=== PATIENT | female | born 1970 | race Caucasian/White ===

== ENCOUNTER → 2020-05-05 08:28 | Outpatient (BNVA) | payer BC, SELFPAY | PROVIDERS: Family Provider Family Medicine; PCP Family Medicine; Referring Provider Family Medicine; Visit Provider Anesthesiology Pain Medicine | DX: M47.816 Spondylosis without myelopathy or radiculopathy, lumbar region (principal); M43.06 Spondylolysis, lumbar region; M54.2 Cervicalgia; M62.830 Muscle spasm of back; Z79.891 Long term (current) use of opiate analgesic | CPT/HCPCS: 99204; 99205 ==

== ENCOUNTER → 2020-05-20 14:27 | Outpatient (BNVA) | payer BC, SELFPAY | PROVIDERS: Family Provider Family Medicine; PCP Family Medicine; Visit Provider Anesthesiology Pain Medicine | DX: M47.816 Spondylosis without myelopathy or radiculopathy, lumbar region (principal); M43.06 Spondylolysis, lumbar region; M54.9 Dorsalgia, unspecified; Z79.891 Long term (current) use of opiate analgesic | CPT/HCPCS: 64493; 64494; 64495; J2001; J3490 ==

== ENCOUNTER → 2020-06-02 14:51 | Outpatient (BNVA) | payer BC, SELFPAY | PROVIDERS: Family Provider Family Medicine; PCP Family Medicine; Visit Provider Anesthesiology Pain Medicine | DX: M47.816 Spondylosis without myelopathy or radiculopathy, lumbar region (principal); M43.06 Spondylolysis, lumbar region; M54.9 Dorsalgia, unspecified; M54.2 Cervicalgia; M62.830 Muscle spasm of back | CPT/HCPCS: 99213 ==

== ENCOUNTER → 2020-07-01 12:29 | Outpatient (BNVA) | payer BC, SELFPAY | PROVIDERS: Family Provider Family Medicine; PCP Family Medicine; Visit Provider Anesthesiology Pain Medicine | DX: M47.816 Spondylosis without myelopathy or radiculopathy, lumbar region (principal); M43.06 Spondylolysis, lumbar region; M54.2 Cervicalgia; M54.9 Dorsalgia, unspecified; M62.830 Muscle spasm of back; Z79.891 Long term (current) use of opiate analgesic | CPT/HCPCS: 64635; 64636; 99212; J1030 ==

== ENCOUNTER → 2020-08-05 12:27 | Outpatient (BNVA) | payer BC, SELFPAY | PROVIDERS: Family Provider Family Medicine; PCP Family Medicine; Visit Provider Anesthesiology Pain Medicine | DX: M47.816 Spondylosis without myelopathy or radiculopathy, lumbar region (principal); M43.06 Spondylolysis, lumbar region; M62.830 Muscle spasm of back; M54.9 Dorsalgia, unspecified; M54.2 Cervicalgia | CPT/HCPCS: 64635; 64636; 99212; 99213; J1030 ==

== ENCOUNTER → 2020-08-25 14:41 | Outpatient (BNVA) | payer BC, SELFPAY | PROVIDERS: Family Provider Family Medicine; PCP Family Medicine; Visit Provider Anesthesiology Pain Medicine | DX: M47.816 Spondylosis without myelopathy or radiculopathy, lumbar region (principal); M43.06 Spondylolysis, lumbar region; M54.9 Dorsalgia, unspecified; M54.2 Cervicalgia; M62.830 Muscle spasm of back; Z79.891 Long term (current) use of opiate analgesic | CPT/HCPCS: 99213 ==

== ENCOUNTER → 2020-09-14 09:49 | Outpatient (BNVA) | payer BC, SELFPAY | PROVIDERS: Family Provider Family Medicine; PCP Family Medicine; Referring Provider Family Medicine; Visit Provider Nurse Practitioner Family | DX: N39.0 Urinary tract infection, site not specified (principal) | CPT/HCPCS: 80053; 81003 ==

== ENCOUNTER → 2020-10-06 08:39 | Outpatient (BNVA) | payer BC, SELFPAY | PROVIDERS: Family Provider Family Medicine; PCP Family Medicine; Visit Provider Anesthesiology Pain Medicine | DX: M47.816 Spondylosis without myelopathy or radiculopathy, lumbar region (principal); M43.06 Spondylolysis, lumbar region; M54.9 Dorsalgia, unspecified; M54.2 Cervicalgia; M62.830 Muscle spasm of back; Z79.891 Long term (current) use of opiate analgesic | CPT/HCPCS: 99214 ==

== ENCOUNTER → 2020-10-12 13:51 | Outpatient (BNVA) | payer BC, SELFPAY | PROVIDERS: Family Provider Family Medicine; PCP Family Medicine; Visit Provider Anesthesiology Pain Medicine | DX: M54.16 Radiculopathy, lumbar region (principal); M54.9 Dorsalgia, unspecified; Z79.891 Long term (current) use of opiate analgesic | CPT/HCPCS: 64483; 64484; J1100; J3490 ==

== ENCOUNTER → 2020-11-02 10:37 | Outpatient (BNVA) | payer BC, SELFPAY | PROVIDERS: Family Provider Family Medicine; PCP Family Medicine; Visit Provider Anesthesiology Pain Medicine | DX: M47.816 Spondylosis without myelopathy or radiculopathy, lumbar region (principal); M43.06 Spondylolysis, lumbar region; M54.9 Dorsalgia, unspecified; M62.830 Muscle spasm of back; M54.2 Cervicalgia; Z79.891 Long term (current) use of opiate analgesic; N39.0 Urinary tract infection, site not specified; B37.3 Candidiasis of vulva and vagina | CPT/HCPCS: 81003; 99213 ==

== ENCOUNTER → 2020-11-28 08:58 | Outpatient (BNVA) | payer BC, SELFPAY | PROVIDERS: Family Provider Family Medicine; PCP Family Medicine; Visit Provider Anesthesiology Pain Medicine | DX: M47.816 Spondylosis without myelopathy or radiculopathy, lumbar region (principal); M62.830 Muscle spasm of back; M43.06 Spondylolysis, lumbar region; M54.9 Dorsalgia, unspecified; M51.36 Other intervertebral disc degeneration, lumbar region; M25.559 Pain in unspecified hip; M19.90 Unspecified osteoarthritis, unspecified site; M48.02 Spinal stenosis, cervical region; M54.12 Radiculopathy, cervical region | CPT/HCPCS: 99214; 99215 ==

== ENCOUNTER → 2020-12-14 13:18 | Outpatient (BNVA) | payer BC, SELFPAY | PROVIDERS: Family Provider Family Medicine; PCP Family Medicine; Visit Provider Anesthesiology Pain Medicine | DX: G89.29 Other chronic pain (principal); M19.90 Unspecified osteoarthritis, unspecified site; M25.552 Pain in left hip; M43.06 Spondylolysis, lumbar region | CPT/HCPCS: 20610; 77002; J1030; J3490 ==

== ENCOUNTER 2021-01-19 08:48 | Emergency (ER) | payer BC, SELFPAY ==
[2021-01-19 08:53] VITALS: BP 177/94; PULSE 86; RESP 16; TEMP 36.1; O2SAT 96; BMI 39.1
--- NOTE | 2021-01-19 09:00 | XR_ITS ---
WS: [id number] Exam: XR ribs LT mn 3V w CXR1V [id number] Date/Time of Exam: 01/19/2021 9:43 AM Reason For Exam: fall No acute left rib fracture or pneumothorax. The lungs are bilaterally clear. Normal cardiomediastinal structures. No pleural effusions. XR/XR ribs LT mn 3V w CXR1V [id number] IMPRESSION: 1. Negative left rib study. No acute cardiopulmonary finding.
--- NOTE | 2021-01-19 09:00 | XR_ITS ---
WS: [id number] Exam: XR hip LT 2-3V wo/w pel* [id number] Date/Time of Exam: 01/19/2021 9:43 AM Reason For Exam: fall No acute fracture or dislocation. Moderate degenerative change of the joint compartment. Normal soft tissues. XR/XR hip LT 2-3V wo/w pel* [id number] IMPRESSION: 1. Moderate DJD. No fracture noted.
--- NOTE | 2021-01-19 09:00 | XR_ITS ---
WS: [id number] Exam: XR shoulder LT min 2V* [id number] Date/Time of Exam: 01/19/2021 9:43 AM Reason For Exam: fall The projections of the shoulder reveal no fractures, anomalies, soft tissue swelling, or calcificatio ns. There is normal bony alignment. No irregularity of the bony architecture is noted. XR/XR shoulder LT min 2V* [id number] IMPRESSION: Negative left shoulder.
--- NOTE | 2021-01-19 09:09 | PC.NURSE ---
portable xray at bedside
[2021-01-19] MEDS: orphenadrine 30 mg/mL Inj 2 mL 60 MG IM (09:13)
[2021-01-19] MEDS: ketorolac 30 mg/mL INJ IM (09:13)
--- NOTE | 2021-01-19 09:56 | ED_ITS ---
HPI - Fall General: Chief Complaint: Fall Stated Complaint: fall, buttock pain , head pain, L shoulder pain Time Seen by Provider: 01/19/21 08:54 History of Present Illness: HPI Narrative: Patient is a 50-year-old female that presents with shoulder, chest and hip pain after a fall. Patient states yesterday afternoon around 330 she was stepping out of the shower when she slipped and fell landing against the toilet. She does states she hit the side of her head but denies loss of consciousness. She reports left shoulder pain, left lateral chest pain and left hip pain. She has been ambulatory since then. She has hydrocodone at home for other chronic pain and states she took some of this to help with her pain. She denies other symptoms. MD complaint: fall Onset (ago): day(s) (Yesterday) Fall from: standing Loss of consciousness: None Context: tripped/slipped Location of injury - extremities: Left: shoulder Associated symptoms-after fall: Denies chest pain, headache(s), hematuria or neck pain Review of Systems General: Reports: 10 or more systems reviewed and unremarkable except in HPI and below Const: Denies: fever(s) Eyes: Denies: blurry vision ENMT: Denies: nasal congestion Card: Reports: other (Left-sided chest wall pain); Denies: chest pain, palpitations, syncope or dyspnea on exertion Resp: Denies: dyspnea or productive cough GI: Reports: nausea; Denies: vomiting, diarrhea, constipation, change in stool character or melena : Denies: dysuria or hematuria Musc: Reports: extremity pain (Left shoulder and left hip); Denies: neck pain or back pain Skin/Breast: Denies: rash or new lesions Neuro: Denies: headache(s) or dizziness Psych: Denies: anxiety Varun/Lymph: Denies: easy bleeding, petechiae or purpura PFSH ED PFSH: Medical History Hypertension Recurrent UTI Slipped cervical disc Yeast vaginitis Surgical History History of section History of knee surgery Family History Other Cancer Diabetes Social History Smoking and tobacco status: never smoked Alcohol intake: never Household members: children Marital status: Current occupational status: employed Current occupation: [employer] History of recent travel: No Physical Exam Const: COMMON NORMALS: no acute distress, patient oriented x3, alert and well nourished HENMT: COMMON NORMALS: normocephalic, atraumatic, EAC's normal, TM's normal bilaterally and Normal external nose present HEAD & SCALP: normocephalic and atraumatic FACE & SINUS: normal facial exam and face symmetric NOSE: Normal external nose present EXTERNAL AUDITORY CANAL: EAC's normal TYMPANIC MEMBRANE: TM's normal bilaterally MOUTH: Normal oral and palatal mucosa present and moist mucous membranes abnormal Eye: COMMON NORMALS: Equal, round and reactive pupils present PUPIL: Yes Equal, round and reactive pupils present Neck/C-Spine: GENERAL: Yes normal visual inspection Chest: COMMONS NORMALS: normal inspection of the chest CHEST: No crepitus and Yes tenderness (Left lateral chest wall) Resp: COMMON NORMALS: normal respiratory effort, No retractions, No use of accessory muscles and clear to auscultation bilaterally AUSCULTATION: clear to auscultation bilaterally Cardio: COMMON NORMALS: regular rate, regular rhythm, S1 normal heart sound present, S2 normal heart sound present and No murmurs present (Cardio) RATE: regular rate RHYTHM: regular rhythm HEART SOUNDS: S1 normal heart sound present and S2 normal heart sound present GI: COMMON NORMALS: Soft to palpation and No hepatosplenomegaly present INSPECTION: Yes normal to inspection AUSCULTATION: Yes normoactive bowel sounds PALPATION: Yes Soft to palpation and Yes No hepatosplenomegaly present RECTAL EXAM: deferred : COMMON NORMALS: Yes no CVA tenderness BLADDER/KIDNEY EXAM: Yes no CVA tenderness Back/Pelvis: COMMON NORMALS: no CVA tenderness Extremity: LEFT UPPER EXTREMITY: Yes shoulder joint (Left shoulder with mild tenderness to palpation. Full passive and active r) Left shoulder joint: Yes ROM LEFT LOWER EXTREMITY: Yes hip joint (Mild tenderness to palpation over the greater trochanter of the left hip.) Neuro: COMMON NORMALS: patient oriented x3 and moves all extremities SENSORIUM/ORIENTATION: Yes alert SPEECH: speech normal Psych: COMMON NORMALS: mental status grossly normal Skin: COMMON NORMALS: no rashes or lesions noted GENERAL SKIN EXAM: no rashes or lesions noted Course Vital Signs: Vital signs: Vital Signs Temperature 97.0 F L 01/19/21 08:53 Pulse Rate 79 01/19/21 11:00 Respiratory Rate 16 01/19/21 11:00 Blood Pressure 177/94 01/19/21 08:53 Pulse Oximetry 99 01/19/21 11:00 MDM - Fall MDM Narrative: Medical decision making narrative: Patient remained stable in ED. Shortly after arriving back to the room from her initial x-rays she also complained of right foot pain after stepping on a rock a week ago. She has some mild tenderness across her midfoot but no swelling or ecchymosis noted. Her x- rays are unremarkable for acute bony abnormalities. Discussed that she likely just strained some muscles and has some muscle cramping. She is already on muscle relaxants and narcotic pain medicine at home. Advised she take these as directed. Discussed signs symptoms of warrant return to the ED otherwise follow-up with her primary care doctor. She voiced understanding is agreeable to plan of care. Discharge Plan Discharge Patient Disposition: Home Clinical Impression: Foot pain, right, Acute pain of left shoulder, Rib pain on left side Hip pain Qualifiers: Laterality: left Qualified Code(s): M25.552 - Pain in left hip Condition: Good Prescriptions: No Action medroxyprogesterone [Depo-Provera] 150 mg/mL suspension IM .1 Q 3 months RF: 0 trazodone 50 mg tablet 50 mg PO DAILY RF: 0 celecoxib [Celebrex] 200 mg capsule 200 mg PO DAILY RF: 0 lisinopril 20 mg tablet 20 mg PO DAILY RF: 0 gabapentin 300 mg capsule 300 mg PO BID 30 Days Qty: 60 RF: 1 fluconazole 150 mg tablet 150 mg PO Q3D Qty: 2 RF: 1 ciprofloxacin HCl 500 mg tablet 500 mg PO BID Qty: 60 RF: 3 tizanidine 4 mg tablet 4 mg PO BID PRN (Reason: muscle spasticity) Qty: 60 RF: 0 hydrocodone-acetaminophen 5-325 mg tablet 1 tab PO BID MDD 2 PRN (Reason: pain ) 30 Days Qty: 60 RF: 0 Discharge Orders: Discharge ED (Routine); Ordered 01/19/21 Ordered By: Cesar He Referrals: Roxi,Anthony F, DO [Primary Care Provider] - Discharge Diet: Usual diet Discharge Activity: Resume usual activity Activity Restrictions/Additional Instructions: Continue to use your muscle relaxants as needed at home. May apply heat or ice to the affected areas as needed. Drink plenty of water as this will help with your soreness. Follow-up with your primary care doctor in 1 to 2 weeks. Return to the ED if symptoms return or worsen. 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
--- NOTE | 2021-01-19 10:08 | XR_ITS ---
WS: [id number] Exam: XR foot RT min 3V* [id number] Date/Time of Exam: 01/19/2021 10:10 AM Reason For Exam: foot pain Comparison 06/03/2019. No acute fracture or dislocation. Degenerative changes at the first MP joint in the midfoot joints. N o soft tissue foreign bodies. Calcaneal spurs. XR/XR foot RT min 3V* [id number] IMPRESSION: 1. No fracture or dislocation. 2. Degenerative changes.
[2021-01-19 11:00] VITALS: PULSE 79; RESP 16; O2SAT 99
== END 2021-01-19 11:00 | disposition home or self-care (01) ==
PROVIDERS: Emergency Provider Emergency Medicine; PCP Family Medicine
DX: M25.512 Pain in left shoulder (principal); R07.81 Pleurodynia; M79.671 Pain in right foot; I10 Essential (primary) hypertension
CPT/HCPCS: 71101; 73030; 73502; 73630; 96372; 99283; J1885; J2360

== ENCOUNTER → 2021-01-23 13:50 | Outpatient (BNVA) | payer BC, SELFPAY | PROVIDERS: PCP Family Medicine; Visit Provider Anesthesiology Pain Medicine | DX: M54.12 Radiculopathy, cervical region (principal); M47.816 Spondylosis without myelopathy or radiculopathy, lumbar region; M62.830 Muscle spasm of back; M43.06 Spondylolysis, lumbar region; M54.9 Dorsalgia, unspecified; M51.36 Other intervertebral disc degeneration, lumbar region; M25.552 Pain in left hip; M19.90 Unspecified osteoarthritis, unspecified site; M48.02 Spinal stenosis, cervical region; Z79.891 Long term (current) use of opiate analgesic | CPT/HCPCS: 99215 ==

== ENCOUNTER 2021-02-03 13:05 | Outpatient (CLI) | payer BC, SELFPAY ==
--- NOTE | 2021-02-03 13:14 | MR_ITS ---
WS: [id number] MRI CERVICAL SPINE NONCONTRAST HISTORY: M54.12 - Radiculopathy, cervical region COMPARISON: 01/10/2007 Technique: Multiplanar, multisequence noncontrast imaging of the cervical spine. Mild straightening of the normal cervical lordosis. No fracture or marrow edema. Signal within the cord is normal. Disc spaces are narrowed and desiccated. Osteophytes extend posteri or most significant from the C5 vertebral body towards the cord. Craniocervical junction, C1 and C2 relationship, odontoid process and soft tissues are normal. C2-C3: Normal. C3-C4: Mild annular disc bulging and osteophytic ridging. Disc osteophyte complex in the LEFT foramen causing mild narrowing. C4-C5: Normal. C5-C6: Diffuse annular disc bulging with moderate sized foraminal osteophytes. Mild encroachment upon the ventral thecal sac with moderate bilateral foraminal stenosis, LEFT greater than RIGHT. C6-C7: Mild annular disc bulging with a central disc protrusion. Disc osteophyte complex in the miguel en causing moderate bilateral foraminal narrowing and mild central stenosis. C7-T1: Shallow central disc protrusion with no significant foraminal stenosis. T2-3: Very tiny central disc protrusion. Paraspinal soft tissue are normal. MR/MR cervical spin wo con* [id number] IMPRESSION: 1. Advanced degenerative disc disease and osteophytosis at C5-6 and to a lesse r extent C6-7. As compared to the prior study from 2006 there has been a progre ssion of degenerative disc disease and osteophytosis. 2. Mild central stenosis with moderate bilateral foraminal stenosis at C5-6 d ue to disc osteophyte disease. 3. Moderate bilateral foraminal stenosis and mild central stenosis at C6-7 due to disc osteophyte disease. 4. Mild LEFT foraminal stenosis at C3-4.
--- NOTE | 2021-02-03 13:14 | XR_ITS ---
WS: [id number] LATERAL CERVICAL SPINE: 3 view. Lateral radiographs are performed in upright neutral, flexion and extension to the patient's toleranc e. HISTORY: M54.12 - Radiculopathy, cervical region COMPARISON: 01/14/2007 Straightening of the normal cervical lordosis. Moderate degenerative disc disease at C5-6. Endplate o steophytes extend posterior and anterior by 1 to 2 mm. Mild disc space narrowing at C6-7. During exte nsion C3 retrolisthesis by 2.5 mm. XR/XR cervical spine fl/ex [id number] IMPRESSION: 1. Moderate degenerative disc disease at C5-6 and mild at C6-7. 2. Mild extension instability of C3.
== END 2021-02-03 13:06 | disposition home or self-care (01) ==
LOC: RADWPI 13:09
PROVIDERS: PCP Family Medicine; Visit Provider Anesthesiology Pain Medicine
DX: M54.12 Radiculopathy, cervical region (principal); M50.322 Other cervical disc degeneration at C5-C6 level; M53.2X2 Spinal instabilities, cervical region; M48.02 Spinal stenosis, cervical region; M25.78 Osteophyte, vertebrae
CPT/HCPCS: 72040; 72141

== ENCOUNTER → 2021-02-06 08:20 | Outpatient (BNVA) | payer BC, SELFPAY | PROVIDERS: PCP Family Medicine; Visit Provider Anesthesiology Pain Medicine | DX: N39.0 Urinary tract infection, site not specified (principal); M51.36 Other intervertebral disc degeneration, lumbar region; M47.816 Spondylosis without myelopathy or radiculopathy, lumbar region; M54.9 Dorsalgia, unspecified; M48.02 Spinal stenosis, cervical region; M54.12 Radiculopathy, cervical region; M19.90 Unspecified osteoarthritis, unspecified site; M25.552 Pain in left hip; Z79.891 Long term (current) use of opiate analgesic | CPT/HCPCS: 81003; 87086; 99214 ==

== ENCOUNTER → 2021-02-17 12:54 | Outpatient (BNVA) | payer BC, SELFPAY | PROVIDERS: PCP Family Medicine; Visit Provider Anesthesiology Pain Medicine | DX: M54.12 Radiculopathy, cervical region (principal); Z79.891 Long term (current) use of opiate analgesic | CPT/HCPCS: 62321; J1100 ==

== ENCOUNTER 2021-02-23 13:38 | Outpatient (CLI) | payer BC, SELFPAY ==
--- NOTE | 2021-02-23 13:44 | XR_ITS ---
WS: [id number] FOOT RIGHT TECHNIQUE: 3 views of the right foot CLINICAL INFORMATION: FOOT PAIN, RIGHT COMPARISON: None. FINDINGS: Osteopenia. Normal metatarsals. No acute fractures. Plantar and Achilles calcaneal spurring. Achilles enthesophyte. No acute fractures. XR/XR foot RT min 3V* [id number] IMPRESSION: No acute fractures
== END 2021-02-23 13:39 | disposition home or self-care (01) ==
PROVIDERS: PCP Family Medicine; Visit Provider Family Medicine
DX: M79.671 Pain in right foot (principal)
CPT/HCPCS: 73630

== ENCOUNTER → 2021-03-02 14:39 | Outpatient (BNVA) | payer BC, SELFPAY | PROVIDERS: PCP Family Medicine; Visit Provider Anesthesiology Pain Medicine | DX: M48.02 Spinal stenosis, cervical region (principal); M54.12 Radiculopathy, cervical region; M54.9 Dorsalgia, unspecified; M47.816 Spondylosis without myelopathy or radiculopathy, lumbar region; M51.36 Other intervertebral disc degeneration, lumbar region; M16.12 Unilateral primary osteoarthritis, left hip; M19.90 Unspecified osteoarthritis, unspecified site; Z79.891 Long term (current) use of opiate analgesic | CPT/HCPCS: 99214 ==

== ENCOUNTER → 2021-03-27 10:00 | Outpatient (BNVA) | payer BC, SELFPAY | PROVIDERS: PCP Family Medicine; Visit Provider Anesthesiology Pain Medicine | DX: M47.816 Spondylosis without myelopathy or radiculopathy, lumbar region (principal); M51.36 Other intervertebral disc degeneration, lumbar region; M25.541 Pain in joints of right hand; M25.542 Pain in joints of left hand; M62.830 Muscle spasm of back; M54.9 Dorsalgia, unspecified; M25.552 Pain in left hip; M48.02 Spinal stenosis, cervical region; M54.12 Radiculopathy, cervical region; M19.90 Unspecified osteoarthritis, unspecified site; Z79.891 Long term (current) use of opiate analgesic | CPT/HCPCS: 99214 ==

== ENCOUNTER → 2021-04-27 14:43 | Outpatient (BNVA) | payer OTHER, SELFPAY | PROVIDERS: PCP Family Medicine; Visit Provider Anesthesiology Pain Medicine | DX: M47.816 Spondylosis without myelopathy or radiculopathy, lumbar region (principal); M43.06 Spondylolysis, lumbar region; M51.36 Other intervertebral disc degeneration, lumbar region; M54.9 Dorsalgia, unspecified; M62.830 Muscle spasm of back; M48.02 Spinal stenosis, cervical region; M54.12 Radiculopathy, cervical region; M25.541 Pain in joints of right hand; M25.542 Pain in joints of left hand; M16.12 Unilateral primary osteoarthritis, left hip | CPT/HCPCS: 99214 ==

== ENCOUNTER → 2021-05-02 15:28 | Outpatient (BNVA) | payer BC, SELFPAY | PROVIDERS: PCP Family Medicine; Visit Provider Podiatrist Foot & Ankle Surgery | DX: M25.571 Pain in right ankle and joints of right foot (principal) | CPT/HCPCS: 73630 ==

== ENCOUNTER 2021-05-08 15:20 | Outpatient (CLI) | payer BC, SELFPAY ==
--- NOTE | 2021-05-08 15:45 | US_ITS ---
WS: [id number] INDICATION: Looney's neuroma TECHNIQUE: Ultrasound soft tissue area of concern FINDINGS: Ultrasound soft tissue right toes area of concern. Solid hypoechoic lesion with vascularity between the third and fourth toes suspicious for Looney's neuroma. This measures approximately 5.2 x 4.4 x 3.9 mm. US/US soft tissue/extremity [id number] IMPRESSION: Solid hypoechoic lesion suspicious for Looney's neuroma between the third and fourth toes described above.
== END 2021-05-08 15:21 | disposition home or self-care (01) ==
LOC: RAD 15:23
PROVIDERS: PCP Family Medicine; Visit Provider Podiatrist Foot & Ankle Surgery
DX: G57.61 Lesion of plantar nerve, right lower limb (principal)
CPT/HCPCS: 76882

== ENCOUNTER → 2021-05-17 10:52 | Outpatient (BNVA) | payer BC, SELFPAY | PROVIDERS: PCP Family Medicine; Visit Provider Internal Medicine | DX: M47.816 Spondylosis without myelopathy or radiculopathy, lumbar region (principal); M54.9 Dorsalgia, unspecified; Z79.891 Long term (current) use of opiate analgesic; M19.90 Unspecified osteoarthritis, unspecified site; M25.541 Pain in joints of right hand; M25.542 Pain in joints of left hand; Z11.59 Encounter for screening for other viral diseases; M48.00 Spinal stenosis, site unspecified | CPT/HCPCS: 36415; 64635; 64636; 99203; 99204; J1030 ==

== ENCOUNTER 2021-05-17 14:04 | Outpatient (CLI) | payer BC, SELFPAY ==
--- NOTE | 2021-05-17 14:10 | XR_ITS ---
WS: [id number] TECHNIQUE: 2 views of the right hand CLINICAL INFORMATION: M25.541 - Pain in joints of right hand COMPARISON: None. FINDINGS: Normal metacarpals. Normal MCP joint. Metacarpal heads are normal in appearance. Normal PIP and DIP j oints. No evidence of acute fracture or dislocation. No erosive changes. Radiocarpal joint: Mild degenerative narrowing Carpal bones: Normal. XR/XR hand RT 2V [id number] IMPRESSION: 1. Mild degenerative narrowing radiocarpal joint. 2. No erosive changes. 3. Otherwise normal right hand.
--- NOTE | 2021-05-17 14:10 | XR_ITS ---
WS: [id number] TECHNIQUE: 2 views of the left hand CLINICAL INFORMATION: M25.541 - Pain in joints of right hand COMPARISON: None. FINDINGS: Normal metacarpals. Normal MCP joint. Metacarpal heads are normal in appearance. Normal PIP and DIP j oints. No evidence of acute fracture or dislocation. No erosive changes. Radiocarpal joint: Normal. Carpal bones: Normal. XR/XR hand LT 2V [id number] IMPRESSION: No erosive changes. Normal left hand.
== END 2021-05-17 14:05 | disposition home or self-care (01) ==
PROVIDERS: PCP Family Medicine; Visit Provider Internal Medicine
DX: M25.541 Pain in joints of right hand (principal); M25.542 Pain in joints of left hand; Z11.59 Encounter for screening for other viral diseases; Z11.1 Encounter for screening for respiratory tuberculosis
CPT/HCPCS: 36415; 73120; 80053; 82306; 82550; 82728; 83540; 83735; 84100; 84443; 85025; 85651; 86140; 86160; 86162; 86235; 86255; 86376; 86431; 86704; 86803; 87340

== ENCOUNTER → 2021-05-31 12:40 | Outpatient (BNVA) | payer BC, SELFPAY | PROVIDERS: PCP Family Medicine; Visit Provider Anesthesiology Pain Medicine | DX: M47.816 Spondylosis without myelopathy or radiculopathy, lumbar region (principal); M43.06 Spondylolysis, lumbar region; M62.830 Muscle spasm of back; M54.9 Dorsalgia, unspecified; Z79.891 Long term (current) use of opiate analgesic | CPT/HCPCS: 64635; 64636; J1100; J3490 ==

== ENCOUNTER → 2021-06-08 09:45 | Outpatient (BNVA) | payer OTHER, SELFPAY | PROVIDERS: PCP Family Medicine; Visit Provider Nurse Practitioner Family | DX: N39.0 Urinary tract infection, site not specified (principal); N89.8 Other specified noninflammatory disorders of vagina | CPT/HCPCS: 81003 ==

== ENCOUNTER → 2021-06-15 14:42 | Outpatient (BNVA) | payer BC, SELFPAY | PROVIDERS: PCP Family Medicine; Visit Provider Anesthesiology Pain Medicine | DX: G89.29 Other chronic pain (principal); M47.816 Spondylosis without myelopathy or radiculopathy, lumbar region; M43.06 Spondylolysis, lumbar region; M51.36 Other intervertebral disc degeneration, lumbar region; M48.02 Spinal stenosis, cervical region; M54.12 Radiculopathy, cervical region; M25.541 Pain in joints of right hand; M25.542 Pain in joints of left hand; M16.12 Unilateral primary osteoarthritis, left hip; M62.830 Muscle spasm of back; Z79.891 Long term (current) use of opiate analgesic | CPT/HCPCS: 99214 ==

== ENCOUNTER 2021-07-07 14:06 | Outpatient (CLI) | payer BC, SELFPAY ==
[2021-07-07 14:48] LABS: Basophils % 0.4 %; Eosinophils # 0.3 10^3/uL (0.0-0.8); Eosinophils % 3.6 %; Hematocrit 39.3 % (37.0-47.0); Hemoglobin 12.7 g/dL (11.5-15.3); Lymphocytes # 2.6 10^3/uL (0.8-4.8); Mean Corpuscular HGB Conc 32.3 g/dL (30.0-36.0); Mean Corpuscular Volume 92.9 fl (81-99); Mean Platelet Volume 11.9 fL (7.4-10.4); Monocytes # 0.5 10^3/uL (0.2-0.9); Monocytes % 6.7 %; Neutrophils # 3.81 10^3/uL (1.8-7.7); Neutrophils % 53.2 %; Nucleated Red Blood Cells % 0 %; Platelet Count 288 10^3/cmm (130-400); Red Blood Count 4.23 10^6/uL (4.1-5.3); Red Cell Distribution Width 13.1 % (12.1-15.1); White Blood Count 7.2 10^3/uL (4.0-10.0)
[2021-07-07 15:22] LABS: Alanine Aminotransferase 17 U/L (0-33); Albumin Level 3.9 g/dL (3.5-5.2); Alkaline Phosphatase 86 IU/L (35-105); Anion Gap 11.6 (5-19); Aspartate Amino Transferase 15 U/L (0-32); Blood Urea Nitrogen 15 mg/dL (6-20); C Reactive Protein 4.5 mg/L (0.0-4.9); Calcium 8.2 mg/dL (8.5-10.5); Carbon Dioxide 26 mmol/L (22-29); Chloride 108 mmol/L (98-107); Globulin 2.8 g/dL (1.3-4.6); Glomerular Filtration Rate 75.3 mL/min (90-130); Glucose 95 mg/dL (65-115); Osmolality Calculated 295 mOsm/kg (285-295); Potassium 3.6 mmol/L (3.5-5.1); Sodium 142 mmol/L (136-145); Total Bilirubin 0.4 mg/dL (0.15-1.2); Total Protein 6.7 g/dL (6.6-8.7)
[2021-07-07 16:28] LABS: Erythrocyte Sedimentation Rate 21 mm/hr (0-15)
== END 2021-07-07 14:07 | disposition home or self-care (01) ==
LOC: LAB 14:10
PROVIDERS: PCP Family Medicine; Visit Provider Internal Medicine
DX: M19.90 Unspecified osteoarthritis, unspecified site (principal); Z79.899 Other long term (current) drug therapy
CPT/HCPCS: 80053; 85025; 85651; 86140

== ENCOUNTER → 2021-07-13 14:55 | Outpatient (BNVA) | payer BC, SELFPAY | PROVIDERS: PCP Family Medicine; Visit Provider Internal Medicine | DX: M25.541 Pain in joints of right hand (principal); M25.542 Pain in joints of left hand; M19.90 Unspecified osteoarthritis, unspecified site; M51.36 Other intervertebral disc degeneration, lumbar region; Z79.899 Other long term (current) drug therapy; R74.8 Abnormal levels of other serum enzymes | CPT/HCPCS: 99213; 99214 ==

== ENCOUNTER → 2021-07-24 09:04 | Outpatient (BNVA) | payer BC, SELFPAY | PROVIDERS: PCP Family Medicine; Visit Provider Anesthesiology Pain Medicine | DX: M47.816 Spondylosis without myelopathy or radiculopathy, lumbar region (principal); M43.06 Spondylolysis, lumbar region; M51.36 Other intervertebral disc degeneration, lumbar region; M25.552 Pain in left hip; M19.90 Unspecified osteoarthritis, unspecified site; M48.02 Spinal stenosis, cervical region; M54.12 Radiculopathy, cervical region; M25.541 Pain in joints of right hand; M25.542 Pain in joints of left hand; M62.830 Muscle spasm of back; Z79.891 Long term (current) use of opiate analgesic | CPT/HCPCS: 99214 ==

== ENCOUNTER → 2021-08-17 14:41 | Outpatient (BNVA) | payer BC, SELFPAY | PROVIDERS: PCP Family Medicine; Visit Provider Anesthesiology Pain Medicine | DX: G89.29 Other chronic pain (principal); M47.816 Spondylosis without myelopathy or radiculopathy, lumbar region; M43.06 Spondylolysis, lumbar region; M51.36 Other intervertebral disc degeneration, lumbar region; M16.12 Unilateral primary osteoarthritis, left hip; M48.02 Spinal stenosis, cervical region; M54.12 Radiculopathy, cervical region; M62.830 Muscle spasm of back; Z79.891 Long term (current) use of opiate analgesic | CPT/HCPCS: 99214 ==

== ENCOUNTER → 2021-09-14 14:45 | Outpatient (BNVA) | payer BC, SELFPAY | PROVIDERS: PCP Family Medicine; Visit Provider Anesthesiology Pain Medicine | DX: G89.29 Other chronic pain (principal); M47.816 Spondylosis without myelopathy or radiculopathy, lumbar region; M43.06 Spondylolysis, lumbar region; M51.36 Other intervertebral disc degeneration, lumbar region; M16.2 Bilateral osteoarthritis resulting from hip dysplasia; M48.02 Spinal stenosis, cervical region; M54.12 Radiculopathy, cervical region; M62.830 Muscle spasm of back; Z79.891 Long term (current) use of opiate analgesic | CPT/HCPCS: 99214 ==

== ENCOUNTER 2021-10-04 09:23 | Emergency (ER) | payer BC, SELFPAY ==
--- NOTE | 2021-10-04 09:25 | XR_ITS ---
WS: [id number] Portable AP upright chest, 10/04/2021 Clinical Data: dyspnea/cough Comparison: PA chest, 01/19/2021. Findings: There are bilateral patchy pulmonary opacities which could represent minimal pneumonia. The heart is slightly enlarged. The upper lobes are clear. No nodules, masses or effusions are seen. Mon itor leads are on the chest wall. XR/XR chest 1V portable [id number] Impression: 1. Bilateral lower lobe pulmonary opacities which may represent pneumonia. 2. Cardiomegaly.
[2021-10-04 09:30] VITALS: BP 64/49; PULSE 106; RESP 18; TEMP 37.1; O2SAT 93; BMI 39.1
--- NOTE | 2021-10-04 09:30 | W.ED.COVID ---
HPI - COVID General: Chief Complaint: COVID symptoms Stated Complaint: COVID+:N/V/D,BLOOD/STOOL,FATIGUE,FALL LAST PM Time Seen by Provider: 10/04/21 09:25 History of Present Illness: HPI Narrative: 51-year-old female presents emergency room known Covid positive. She has had nausea vomiting and diarrhea. She is also had some blood in the stool in her stool. She is very fatigued. Last night she had a fall. MD complaint: known COVID positive Prior testing date: 09/27/21 COVID 19 common symptoms: positive fever(s), chills, cough, dyspnea, fatigue, body aches, nasal congestion, nausea, vomiting and diarrhea COVID 19 other sytmptoms: negative chest pain or requiring oxygen Onset (ago): day(s) Severity: moderate Pertinent comorbid conditions: hypertension and obesity Treatment prior to arrival: none COVID Results: No Data to Display Review of Systems Const: Reports: fever(s), chills, body aches and fatigue ENMT: Reports: nasal congestion Card: Denies: chest pain, edema, dyspnea on exertion or orthopnea Resp: Reports: dyspnea GI: Reports: nausea, vomiting and diarrhea : Denies: flank pain, difficulty voiding, dysuria, urinary frequency or urinary urgency Skin/Breast: Denies: rash or pruritus PFSH ED PFSH: Medical History Hypertension Recurrent UTI Slipped cervical disc Yeast vaginitis Surgical History History of section History of knee surgery Family History Mother Cancer breast Other Diabetes Social History Second hand smoke exposure: No Alcohol intake: never Household members: children Marital status: Current occupational status: employed Current occupation: [employer]- [employer] History of recent travel: No Physical Exam Const: COMMON NORMALS: no acute distress GENERAL APPEARANCE: cooperative and comfortable ORIENTATION/CONSCIOUSNESS: Yes awake, Yes oriented to person, Yes oriented to place and Yes oriented to time HENMT: COMMON NORMALS: normocephalic, atraumatic and hearing grossly normal bilaterally HEAD & SCALP: normocephalic and atraumatic Resp: COMMON NORMALS: normal respiratory effort, No retractions, No use of accessory muscles and clear to auscultation bilaterally AUSCULTATION: clear to auscultation bilaterally Cardio: COMMON NORMALS: regular rate, regular rhythm and No murmurs present (Cardio) RATE: regular rate RHYTHM: regular rhythm GI: COMMON NORMALS: Soft to palpation and No hepatosplenomegaly present AUSCULTATION: Yes normoactive bowel sounds PALPATION: Yes Soft to palpation, No Tenderness to palpation present (GI), No Guarding due to palpation present (GI) and Yes No hepatosplenomegaly present Extremity: COMMON NORMALS: normal to inspection, capillary refill normal, no clubbing, cyanosis or edema, no calf tenderness and no pedal edema Neuro: SENSORIUM/ORIENTATION: Yes oriented to person, Yes oriented to place and Yes oriented to time Skin: COMMON NORMALS: no rashes or lesions noted GENERAL SKIN EXAM: no rashes or lesions noted Course Vital Signs: Vital signs: Vital Signs Temperature 98.8 F 10/04/21 09:30 Pulse Rate 92 10/04/21 13:19 Respiratory Rate 18 10/04/21 13:19 Blood Pressure 121/62 10/04/21 13:19 Pulse Oximetry 98 10/04/21 13:19 MDM - COVID Lab Data: Labs: Lab Results 10/04/21 10/04/21 09:35 09:35 WBC 6.9 10^3/uL 10^3/ uL (4.0-10.0) RBC 4.74 10^6/uL 10^6 /uL (4.1-5.3) Hgb 13.8 g/dL g/dL (11.5-15.3) Hct 42.8 % % (37.0-47.0) MCV 90.3 fl fl (81-99) MCH 29.1 pg pg (28.0-34.0) MCHC 32.2 g/dL g/dL (30.0-36.0) RDW 13.5 % % (12.1-15.1) Plt Count 192 10^3/cmm 10^3 /cmm (130-400) MPV 11.9 fL H fL (7.4-10.4) Neut % (Auto) 77.2 % % Lymph % (Auto) 17.6 % % [place] % (Auto) 4.7 % % Eos % (Auto) 0.1 % % Baso % (Auto) 0.1 % % Neut # (Auto) 5.29 10^3/uL 10^3 /uL (1.8-7.7) Lymph # (Auto) 1.2 10^3/uL 10^3/ uL (0.8-4.8) [place] # (Auto) 0.3 10^3/uL 10^3/ uL (0.2-0.9) Eos # (Auto) 0.0 10^3/uL 10^3/ uL (0.0-0.8) Baso # (Auto) 0.0 10^3/uL 10^3/ uL (0.0-0.1) Nucleated RBC % (a uto) 0 % % Nucleated RBCs # 0.0 /100WBC /100W BC Sodium 134 mmol/L L mmol /L (136-145) Potassium 3.4 mmol/L L mmol /L (3.5-5.1) Chloride 101 mmol/L mmol/L (98-107) Carbon Dioxide 19 mmol/L L mmol/ L (22-29) Anion Gap 17.4 (5-19) BUN 22 mg/dL H mg/dL (6-20) Creatinine 1.2 mg/dL H mg/dL (0.5-0.9) GFR Calculation 47.2 mL/min L mL/ min (90-130) Glucose 117 mg/dL H mg/dL (65-115) Calculated Osmolal ity 282 mOsm/kg L mOs m/kg (285-295) Calcium 8.2 mg/dL L mg/dL (8.5-10.5) Total Bilirubin 0.3 mg/dL mg/dL (0.15-1.2) AST 29 U/L U/L (0-32) ALT 20 U/L U/L (0-33) Alkaline Phosphata se 58 IU/L IU/L (35-105) Total Protein 7.0 g/dL g/dL (6.6-8.7) Albumin 3.4 g/dL L g/dL (3.5-5.2) Globulin 3.6 g/dL g/dL (1.3-4.6) COVID Results: No Data to Display Monoclonal Antibody - ED Inclusion/Exclusion Criteria age >/= 12 years, weight >/= 40kg /88lbs and symptom onset less than 10 days ago obesity (BMI >25 or 85%til for age) not requiring hospitalization, not requiring oxygen (if not chronically on oxygen) and no increase oxygen requirement (if chronically on oxygen) Patient education patient/family/caregiver received/reviewed fact sheet, Emergency Use Authorization/unapproved drug status discussed with patient/family/caregiver, alternatives to this treatment discussed with patient/family/caregiver, risks and benefits of medication reviewed with patient/family/caregiver, patient/family/caregiver given opportunity for questions, which were answered and patient consents to receiving Monoclonal Antibody Treatment Plan for treatment Meets criteria for Monoclonal Antibody infusion Where are the positive COVID test results, if positive?: Scanned into [facility] Ordering Monoclonal Antibody infusion for today Other information Extensive discussion patient has right at the edge of 10 days and some recent studies on her own experience at our institution we found her inside 7 days most beneficial. She is not requiring supplemental oxygen at this point. She does have a little bit of lowering in her oxygen saturation was very clear with her there is a potential for this to worsen her symptoms given this late in the course of symptoms were right at day 10 but there is no clear data on it. She wishes to proceed she was given opportunity to ask specific questions all questions were answered and she still wishes to proceed with the understanding there is a possibility this may make her worse and it may not be of any benefit. Discharge Plan Discharge Patient Disposition: Home Clinical Impression: Pneumonia due to 2019-nCoV Condition: Stable Prescriptions: No Action trazodone 50 mg tablet 50 mg PO DAILY RF: 0 lisinopril 30 mg tablet 30 mg PO DAILY RF: 0 vitamin B complex [B Complex-Vitamin B12] Tablet 1 tab PO DAILY RF: 0 meloxicam 15 mg tablet 15 mg PO DAILY Qty: 30 RF: 2 prednisone 5 mg tablet See Rx Instructions PO DAILY Qty: 60 RF: 0 hydrocodone-acetaminophen 5-325 mg tablet 1 tab PO TID MDD 2 PRN (Reason: pain ) 30 Days Qty: 90 RF: 0 gabapentin 300 mg capsule 300 mg PO BID 30 Days Qty: 60 RF: 1 tizanidine 4 mg tablet 4 mg PO BID PRN (Reason: muscle spasticity) Qty: 60 RF: 0 Discharge Orders: Discharge ED (Routine); Ordered 10/04/21 Ordered By: Casper Pride Referrals: Anthony Diane DO [Primary Care Provider] - Discharge Diet: Usual diet Discharge Activity: Increase activity as tolerated Patient Instructions: Opioid Safety Activity Restrictions/Additional Instructions: Follow up with PCP, monitor oxygen saturations at home. If less than 92% at rest recehck. Coding Level of Care Code ED Records Management Analyst for Chg Fwd Exam Detailed
[2021-10-04 09:51] LABS: Basophils % 0.1 %; Eosinophils % 0.1 %; Hematocrit 42.8 % (37.0-47.0); Hemoglobin 13.8 g/dL (11.5-15.3); Lymphocytes # 1.2 10^3/uL (0.8-4.8); Lymphocytes % 17.6 %; Mean Corpuscular HGB Conc 32.2 g/dL (30.0-36.0); Mean Corpuscular Hemoglobin 29.1 pg (28.0-34.0); Mean Corpuscular Volume 90.3 fl (81-99); Mean Platelet Volume 11.9 fL (7.4-10.4); Monocytes # 0.3 10^3/uL (0.2-0.9); Monocytes % 4.7 %; Neutrophils # 5.29 10^3/uL (1.8-7.7); Neutrophils % 77.2 %; Nucleated Red Blood Cells % 0 %; Platelet Count 192 10^3/cmm (130-400); Red Blood Count 4.74 10^6/uL (4.1-5.3); Red Cell Distribution Width 13.5 % (12.1-15.1); White Blood Count 6.9 10^3/uL (4.0-10.0)
[2021-10-04] MEDS: sodium chloride 0.9% 500 ML 999 ML IV (10:03)
[2021-10-04 10:04] VITALS: O2SAT 95
[2021-10-04 10:14] LABS: Alanine Aminotransferase 20 U/L (0-33); Albumin Level 3.4 g/dL (3.5-5.2); Alkaline Phosphatase 58 IU/L (35-105); Anion Gap 17.4 (5-19); Aspartate Amino Transferase 29 U/L (0-32); Blood Urea Nitrogen 22 mg/dL (6-20); Calcium 8.2 mg/dL (8.5-10.5); Carbon Dioxide 19 mmol/L (22-29); Chloride 101 mmol/L (98-107); Globulin 3.6 g/dL (1.3-4.6); Glomerular Filtration Rate 47.2 mL/min (90-130); Glucose 117 mg/dL (65-115); Osmolality Calculated 282 mOsm/kg (285-295); Potassium 3.4 mmol/L (3.5-5.1); Sodium 134 mmol/L (136-145); Total Bilirubin 0.3 mg/dL (0.15-1.2)
[2021-10-04 13:19] VITALS: BP 121/62; PULSE 92; RESP 18; O2SAT 98
== END 2021-10-04 13:21 | disposition home or self-care (01) ==
PROVIDERS: Emergency Provider Family Medicine; PCP Family Medicine
DX: U07.1 COVID-19 (principal); J12.82 Pneumonia due to coronavirus disease 2019; I10 Essential (primary) hypertension
CPT/HCPCS: 71045; 80053; 85025; 96365; 99284; J7040

== ENCOUNTER 2021-10-15 06:52 | Inpatient (IN) | payer BC, SELFPAY ==
[2021-10-15] VITALS (15 sets, daily range): BP systolic 142–167; BP diastolic 83–96; PULSE 86–119; RESP 21–28; TEMP 36.6–37.7; O2SAT 91–97; BMI 36.0
--- NOTE | 2021-10-15 06:56 | W.ED.CHESTPA ---
HPI - Chest Pain General: Chief Complaint: Chest Pain Stated Complaint: fever, cp, coughoff quarentine covid + a week Time Seen by Provider: 10/15/21 06:56 History of Present Illness: HPI narrative: Ms. Mackey is a 51-year-old lady with history of hypertension and chronic pain who presents to the emergency department due to cough and chest discomfort. She was diagnosed approximately 2 weeks ago with Covid and had fairly typical symptoms at that time. Since time of onset she has had continued symptoms and has not had significant improvement and then worsening. She endorses low-grade fevers, continued muscle aches, pains, cough, chest discomfort, nausea, and some episodes of diarrhea which are improving. Chest discomfort is left anterior chest with some radiation of the breast. There is mild associated shortness of breath however not worse than what she has been experiencing prior to the chest pain. No other typical cardiac features. Quality is sharp and aching. Intensity is moderate. No other specific changes in health, exacerbating, or alleviating factors identified. Review of Systems General: Reports: 10 or more systems reviewed and unremarkable except in HPI and below PFSH ED PFSH: Medical History Hypertension Recurrent UTI Slipped cervical disc Yeast vaginitis Surgical History History of section History of knee surgery Family History Mother Cancer breast Other Diabetes Social History Second hand smoke exposure: No Alcohol intake: never Household members: children Marital status: Current occupational status: employed Current occupation: [employer]- [employer] History of recent travel: No Physical Exam Narrative: EXAM NARRATIVE: GENERAL/CONSTITUTIONAL - mildly ill-appearing. No acute distress. Eyes - no scleral icterus , no conjunctival injection ENMT - Atraumatic external nose and ears. NECK - supple. trachea midline CARDIOVASCULAR -tachycardic rate and regular rhythm. normal peripheral perfusion RESPIRATORY -clear to auscultation bilaterally. Increased respiratory effort and rate increased respiratory effort and rate now requiring supplemental oxygen ABDOMEN/GI - Nontender/Nondistended. MSK - Extremities without obvious deformity. generalized mild muscle tenderness to palpation SKIN - Warm, Dry NEURO - alert and appropriately oriented. Moves all extremities equally. Course ED course: - Patient was seen and evaluated by me at bedside - Patient placed on cardiac monitors, IV access obtained - Initial evaluation notable for ill appearance, increased respiratory effort and rate with new oxygen requirement. - Symptom treatment ordered - Labs notable for leukocytosis. Metabolic panel notable for hypokalemia, replenishment ordered. Delta troponin negative. Procalcitonin negative. - Imaging notable for pneumonia - Upon serial reexamination after treatment the patient was mildly improved - Based on patient history, evaluation, labs, and imaging as interpreted the most likely cause of the patient's condition is Covid pneumonia with acute hypoxic respiratory failure as explained by new oxygen requirement and respiratory distress - The results of ED evaluation were discussed with the patient including plan for admission due to requirement for level of care not available if discharged to prevent significant worsening/deterioration. - Hospitalist service contacted and agreed admit the patient. CTA ordered after discussion and positive for pulmonary embolism, anticoagulation at therapeutic dose ordered. - Patient was admitted without further deterioration or significant events. Vital Signs: Vital signs: Vital Signs Temperature 98.1 F 10/17/21 16:38 Pulse Rate 109 H 10/17/21 16:38 Respiratory Rate 16 10/17/21 16:38 Blood Pressure 127/78 10/17/21 16:38 Pulse Oximetry 99 10/17/21 16:38 MDM - Chest Pain Medical Records: Attestation: I reviewed the patient's medical records. Lab Data: Attestation: I reviewed the patient's lab results. Labs: Lab Results 10/15/21 10/15/21 10/15/21 07:38 07:38 07:38 WBC 15.2 10^3/uL H 10 ^3/uL (4.0-10.0) RBC 3.88 10^6/uL L 10 ^6/uL (4.1-5.3) Hgb 11.7 g/dL g/dL (11.5-15.3) Hct 34.8 % L % (37.0-47.0) MCV 89.7 fl fl (81-99) MCH 30.2 pg pg (28.0-34.0) MCHC 33.6 g/dL g/dL (30.0-36.0) RDW 13.2 % % (12.1-15.1) Plt Count 339 10^3/cmm 10^3 /cmm (130-400) MPV 11.6 fL H fL (7.4-10.4) Neut % (Auto) 75.8 % % Lymph % (Auto) 12.1 % % Glynn % (Auto) 9.8 % % Eos % (Auto) 1.4 % % Baso % (Auto) 0.3 % % Neut # (Auto) 11.51 10^3/uL H 1 0^3/uL (1.8-7.7) Lymph # (Auto) 1.8 10^3/uL 10^3/ uL (0.8-4.8) Glynn # (Auto) 1.5 10^3/uL H 10^ 3/uL (0.2-0.9) Eos # (Auto) 0.2 10^3/uL 10^3/ uL (0.0-0.8) Baso # (Auto) 0.0 10^3/uL 10^3/ uL (0.0-0.1) Nucleated RBC % (a uto) 0 % % Nucleated RBCs # 0.0 /100WBC /100W BC Sodium 140 mmol/L mmol/L (136-145) Potassium 3.1 mmol/L L mmol /L (3.5-5.1) Chloride 104 mmol/L mmol/L (98-107) Carbon Dioxide 23 mmol/L mmol/L (22-29) Anion Gap 16.1 (5-19) BUN 7 mg/dL mg/dL (6-20) Creatinine 0.8 mg/dL mg/dL (0.5-0.9) GFR Calculation 75.3 mL/min L mL/ min (90-130) Glucose 104 mg/dL mg/dL (65-115) Estimat Average Gl ucose Hemoglobin A1c Calculated Osmolal ity 288 mOsm/kg mOsm/ kg (285-295) Lactate Calcium 8.1 mg/dL L mg/dL (8.5-10.5) Magnesium Total Bilirubin 1.3 mg/dL H mg/dL (0.15-1.2) AST 16 U/L U/L (0-32) ALT 27 U/L U/L (0-33) Alkaline Phosphata se 74 IU/L IU/L (35-105) Troponin T Baselin e 12 ng/L H ng/L (0-10) Troponin T 120 Min [place] Delta Troponin T NT-Pro-B Natriuret Pep Total Protein 6.1 g/dL L g/dL (6.6-8.7) Albumin 3.4 g/dL L g/dL (3.5-5.2) Globulin 2.7 g/dL g/dL (1.3-4.6) Procalcitonin 0.15 ng/mL ng/mL (0-0.5) TSH 1.77 uIU/mL uIU/m L (0.27-4.20) 10/15/21 10/15/21 10/15/21 07:38 07:38 07:38 WBC RBC Hgb Hct MCV MCH MCHC RDW Plt Count MPV Neut % (Auto) Lymph % (Auto) Glynn % (Auto) Eos % (Auto) Baso % (Auto) Neut # (Auto) Lymph # (Auto) Glynn # (Auto) Eos # (Auto) Baso # (Auto) Nucleated RBC % (a uto) Nucleated RBCs # Sodium Potassium Chloride Carbon Dioxide Anion Gap BUN Creatinine GFR Calculation Glucose Estimat Average Gl ucose 111 Hemoglobin A1c 5.5 % % (4.0-6.0) Calculated Osmolal ity Lactate Calcium Magnesium 1.4 mg/dL L mg/dL (1.7-2.3) Total Bilirubin AST ALT Alkaline Phosphata se Troponin T Baselin e Troponin T 120 Min [place] Delta Troponin T NT-Pro-B Natriuret Pep 175 pg/mL H pg/mL (0-125) Total Protein Albumin Globulin Procalcitonin TSH 10/15/21 10/15/21 07:57 09:36 WBC RBC Hgb Hct MCV MCH MCHC RDW Plt Count MPV Neut % (Auto) Lymph % (Auto) Glynn % (Auto) Eos % (Auto) Baso % (Auto) Neut # (Auto) Lymph # (Auto) Glynn # (Auto) Eos # (Auto) Baso # (Auto) Nucleated RBC % (a uto) Nucleated RBCs # Sodium Potassium Chloride Carbon Dioxide Anion Gap BUN Creatinine GFR Calculation Glucose Estimat Average Gl ucose Hemoglobin A1c Calculated Osmolal ity Lactate 0.8 mmol/L mmol/L (0.5-2.2) Calcium Magnesium Total Bilirubin AST ALT Alkaline Phosphata se Troponin T Baselin e Troponin T 120 Min [place] 12.59 ng/L H ng/L (0-10) Delta Troponin T 0.59 ABS# ABS# (0-10) NT-Pro-B Natriuret Pep Total Protein Albumin Globulin Procalcitonin TSH EKG Data^: EKG 1: Attestation: I personally reviewed and interpreted this EKG as follows: EKG interpretation date: 10/15/21 EKG interpretation time: 07:22 Interpretation: Twelve-lead EKG shows a regular rhythm at a rate of 111. IA interval 165, QRS duration 96, QTc 370. Normal axis. Interpretation: Sinus tachycardia. EKG 2: Attestation: I personally reviewed and interpreted this EKG as follows: EKG interpretation date: 10/15/21 EKG interpretation time: 09:33 Interpretation: Twelve-lead EKG shows a regular. IA interval 172, QRS duration 97, Q TC 387 Normal axis. Interpretation: Sinus tachycardia. EKG 3: Attestation: I personally reviewed and interpreted this EKG as follows: EKG interpretation date: 10/15/21 EKG interpretation time: 11:50 Interpretation: twelve-lead EKG shows a regular rhythm at a rate of 100 IA interval 154, QRS duration 95, QTc 386 Normal axis Interpretation: Sinus tachycardia. Discharge Plan Discharge Admit Provider: Goran Starr Condition: Stable Discharge Orders: Discharge Order (Routine); Ordered 10/17/21 Ordered By: Kahsif Trujillo Discharge Diet: Regular Discharge Activity: Increase activity as tolerated Coding Level of Care Code ED Progressive Care Manager for [facility]
--- NOTE | 2021-10-15 07:26 | XRR_ITS ---
PROCEDURE INFORMATION: Exam: XR Chest Exam date and time: 10/15/2021 7:26 AM Age: 51 years old Clinical indication: Pain; Angina pectoris; Additional info: Chest pain TECHNIQUE: Imaging protocol: XR of the chest. Views: 1 view. COMPARISON: CR XR chest 1V portable [id number] 10/04/2021 9:32 AM FINDINGS: Lungs: There is increasing consolidation in the left lung base consistent with worsening pneumonia. Pleural spaces: Unremarkable. No pleural effusion. No pneumothorax. Heart/Mediastinum: Unremarkable. No cardiomegaly. Bones/joints: Unremarkable. XR/XR chest 1V portable [id number] IMPRESSION: Worsening left basilar pneumonia. Radiation Dose CTDIVOL = (mGy): DLP = (mGy-cm)
--- NOTE | 2021-10-15 07:27 | ECG_ITS ---
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 Measurements Intervals [place] Rate: 100 P: 22 SC: 154 QRS: 19 QRSD: 95 T: -15 QT: 329 QTc: 426 Interpretive Statements SINUS TACHYCARDIA NONSPECIFIC T-WAVE ABNORMALITY ABNORMAL RHYTHM ECG No previous ECG available for comparison Electronically Signed On 10-15-2021 15:53:50 SUPERVISOR PAINTING by Gildardo Irving M.D. [id number]
[2021-10-15] MEDS: sodium chloride 0.9% 1,000 ML 999 ML IV ×2 (07:48→09:04)
[2021-10-15] MEDS: aspirin 81 mg Chew Tablet 324 MG PO (07:50)
[2021-10-15 07:51] LABS: Basophils % 0.3 %; Eosinophils # 0.2 10^3/uL (0.0-0.8); Eosinophils % 1.4 %; Hematocrit 34.8 % (37.0-47.0); Hemoglobin 11.7 g/dL (11.5-15.3); Lymphocytes # 1.8 10^3/uL (0.8-4.8); Lymphocytes % 12.1 %; Mean Corpuscular HGB Conc 33.6 g/dL (30.0-36.0); Mean Corpuscular Hemoglobin 30.2 pg (28.0-34.0); Mean Corpuscular Volume 89.7 fl (81-99); Mean Platelet Volume 11.6 fL (7.4-10.4); Monocytes # 1.5 10^3/uL (0.2-0.9); Monocytes % 9.8 %; Neutrophils # 11.51 10^3/uL (1.8-7.7); Neutrophils % 75.8 %; Nucleated Red Blood Cells % 0 %; Platelet Count 339 10^3/cmm (130-400); Red Blood Count 3.88 10^6/uL (4.1-5.3); Red Cell Distribution Width 13.2 % (12.1-15.1); White Blood Count 15.2 10^3/uL (4.0-10.0)
[2021-10-15] MEDS: ketorolac 30 mg/mL INJ 15 MG IVP (07:51)
[2021-10-15] MEDS: ondansetron 2 mg/ML SDV 2 mL 4 MG IVP ×2 (07:52→21:12)
[2021-10-15 08:11] LABS: Troponin(5th) Baseline 12 ng/L (0-10)
[2021-10-15 08:17] LABS: Procalcitonin 0.15 ng/mL (0-0.5); Thyroid Stimulating Hormone 1.77 uIU/mL (0.27-4.20)
[2021-10-15 08:22] LABS: Lactate (Lactic Acid level) 0.8 mmol/L (0.5-2.2)
[2021-10-15 08:28] LABS: Alanine Aminotransferase 27 U/L (0-33); Albumin Level 3.4 g/dL (3.5-5.2); Alkaline Phosphatase 74 IU/L (35-105); Anion Gap 16.1 (5-19); Aspartate Amino Transferase 16 U/L (0-32); Blood Urea Nitrogen 7 mg/dL (6-20); Calcium 8.1 mg/dL (8.5-10.5); Carbon Dioxide 23 mmol/L (22-29); Chloride 104 mmol/L (98-107); Globulin 2.7 g/dL (1.3-4.6); Glomerular Filtration Rate 75.3 mL/min (90-130); Glucose 104 mg/dL (65-115); Osmolality Calculated 288 mOsm/kg (285-295); Potassium 3.1 mmol/L (3.5-5.1); Sodium 140 mmol/L (136-145); Total Bilirubin 1.3 mg/dL (0.15-1.2); Total Protein 6.1 g/dL (6.6-8.7)
[2021-10-15 08:34] LABS: Magnesium 1.4 mg/dL (1.7-2.3)
--- NOTE | 2021-10-15 08:50 | PC.NURSE ---
Pt placed on continous cardiac, BP, and SpO2 monitoring upon arrival into room.
[2021-10-15] MEDS: levofloxacin-dextrose 5 % 750 MG/150 ML PREMIX 100 MG IV (09:06)
[2021-10-15] MEDS: potassium chloride ER 20 mEq Tablet 40 MEQ PO (09:06)
--- NOTE | 2021-10-15 09:27 | ECG_ITS ---
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 Measurements Intervals [place] Rate: 111 P: 22 IN: 165 QRS: 24 QRSD: 96 T: -6 QT: 304 QTc: 415 Interpretive Statements SINUS TACHYCARDIA INCOMPLETE RIGHT BUNDLE BRANCH BLOCK [90+ ms QRS DURATION, TERMINAL R IN V1/V2, 40+ ms S IN I/aVL/V4/V5/V6] MODERATE T-WAVE ABNORMALITY, CONSIDER ANTERIOR ISCHEMIA [-0.1+ mV T-WAVE IN V3/V4] No previous ECG available for comparison Electronically Signed On 10-15-2021 15:56:07 RCP by Gildardo Irving M.D. [id number] f
--- NOTE | 2021-10-15 09:51 | CTR_ITS ---
PROCEDURE INFORMATION: Exam: CTA Chest With Contrast Exam date and time: 10/15/2021 9:51 AM Age: 51 years old Clinical indication: Shortness of breath; Additional info: SOB, tachy, post covid TECHNIQUE: Imaging protocol: Computed tomographic angiography of the chest with contrast. 3D rendering (Not supervised by radiologist): MIP and/or 3D reconstructed images were created by the technologist. Radiation optimization: All CT scans at this facility use at least one of these dose optimization techniques: automated exposure control; mA and/or kV adjustment per patient size (includes targeted exams where dose is matched to clinical indication); or iterative reconstruction. Contrast material: OMNI 350; Contrast volume: 75 ml; Contrast route: INTRAVENOUS (IV); COMPARISON: CR XR chest 1V portable [id number] 10/15/2021 7:34 AM RADIATION DOSE METRICS: Total DLP (mGy-cm): 527.63 FINDINGS: Pulmonary arteries: There are bilateral filling defects in lobar and segmental branches of the pulmonary arteries due to bilateral pulmonary emboli. Aorta: Unremarkable. No aortic aneurysm. No aortic dissection. Lungs: There are extensive bilateral pulmonary infiltrates especially in the left lung base consistent with bilateral pneumonia. Pleural spaces: There is a small left pleural effusion. No pneumothorax. Heart: The heart is not enlarged. The RV/LV ratio is normal at 0.74. Lymph nodes: Unremarkable. No enlarged lymph nodes. Bones/joints: Unremarkable. No acute fracture. Soft tissues: Unremarkable. CT/CT angio chest PE protcl [id number] IMPRESSION: 1. Multiple bilateral pulmonary emboli in lobar and segmental branches. 2. Bibasilar pneumonia especially on the left side. 3. Small left pleural effusion. Radiation Dose CTDIVOL = (mGy): DLP = 527.63 (mGy-cm)
[2021-10-15] MEDS: magnesium sulfate premix 2 GM/50 ML PIGGYBACK IV (09:53)
[2021-10-15 10:14] LABS: Troponin 5 2HR 12.59 ng/L (0-10); Troponin 5 2HR Delta 0.59 ABS# (0-10)
[2021-10-15 10:50] LABS: NT Pro B Type Natriuretic Pept 175 pg/mL (0-125)
[2021-10-15] MEDS: morphine 4 mg/mL SDV 1 mL IVP (10:53)
[2021-10-15] MEDS: iohexol 350 mg/mL 100 mL Btl IV (11:12)
[2021-10-15] MEDS: enoxaparin 120 mg/0.8 mL Syringe 110 MG SUBCUT (11:53)
--- NOTE | 2021-10-15 12:59 | P.HP_ITS ---
Providers/Chief Complaint Admitting Physician: Goran Starr MD Primary Care Provider: Anthony Diane DO Chief Complaint: fever, cp, coughoff quarentine covid + a week History of Present Illness Enriqueta Mackey is a 51 year old female with a past medical history of chronic pain on hydrocodone and gabapentin, cervical radiculopathy, osteoarthritis, history of Covid positivity September 29, symptoms began September 24, presents to [facility] for continued shortness of breath, fevers, left chest pain. Patient tells me that for the last few days she is been decreasing the s hort of breath, been having fevers, she is also has been experiencing left-sided chest pain, associate with deep breath, nonradiating, no lightheaded, dizziness, does have a poor appetite, no lightheadedness, dizziness, no history of COPD, history of smoking, no history of CAD, no history of CHF, no history of DVTs. She thought she might of had a a superficial blood clot on the right leg, on the top of the leg, was not advised of any blood thinners Review of Systems Const: Reports: fever(s) and malaise; Denies: chills or fatigue Eyes: Denies: change in vision or blurry vision ENMT: Denies: throat pain or nasal congestion Card: Reports: chest pain and dyspnea on exertion; Denies: palpitations, irregular heart rhythm, edema, swelling of feet/ankles, lightheadedness, syncope or pre-syncope Resp: Reports: dyspnea; Denies: productive cough, non-productive cough or wheezing GI: Denies: abdominal pain, nausea, vomiting, hematemesis, diarrhea, constipation, hematochezia or melena : Denies: flank pain, dysuria or urinary frequency Musc: Denies: neck pain or back pain Skin/Breast: Denies: rash Neuro: Denies: headache(s), dizziness or vertigo Psych: Denies: anxiety or depression Medications/Allergies Home Medications Medication Instructions Recorded Confirmed Last Taken Type trazodone 50 mg tablet 50 mg PO BEDTIME 05/05/20 10/15/21 10/14/21 History vitamin B complex 1 tab PO DAILY 06/08/21 10/15/21 Unknown History meloxicam 15 mg tablet 15 mg PO DAILY #30 tab 08/10/21 10/15/21 10/14/21 Rx gabapentin 300 mg capsule 300 mg PO BID 30 Days #60 cap 09/14/21 10/15/21 10/14/21 Rx hydrocodone 5 mg-acetaminophen 325 1 tab PO TID PRN 30 Days #90 tab 09/14/21 10/15/21 Unknown Rx mg tablet MDD 2 tizanidine 4 mg tablet 4 mg PO BID PRN #60 tab 09/14/21 10/15/21 Unknown Rx lisinopril 20 mg PO DAILY 10/15/21 10/15/21 10/14/21 History medroxyprogesterone 150 mg IM Q90D 10/15/21 10/15/21 Unknown History Allergies Allergy/AdvReac Type Severity Reaction Status Date / Time Dihydroaminopryidine Allergy Mild rash Verified 09/14/21 14:50 Antibiotics acetaminophen [From Midol] Allergy Unknown unknown Verified 09/14/21 14:50 azithromycin [From Zithromax] Allergy Unknown Unknown Verified 09/14/21 14:50 cephalexin [From Keflex] Allergy Unknown Unknown Verified 09/14/21 14:50 doxycycline Allergy Unknown Unknown Verified 09/14/21 14:50 nitrofurantoin Allergy Unknown Unknown Verified 09/14/21 14:50 [From Macrobid] pamabrom [From Midol] Allergy Unknown unknown Verified 09/14/21 14:50 Penicillins Allergy Unknown Unknown Verified 09/14/21 14:50 Sulfa (Sulfonamide Allergy Unknown Unknown Verified 09/14/21 14:50 Antibiotics) naproxen [From Aleve] Allergy Unknown Verified 09/14/21 14:50 PFSH Acute PFSH: Medical History Hypertension Recurrent UTI Slipped cervical disc Yeast vaginitis Surgical History History of section History of knee surgery Family History Mother Cancer breast Other Diabetes Social History Second hand smoke exposure: No Alcohol intake: never Household members: children Marital status: Current occupational status: employed Current occupation: [employer] History of recent travel: No Vitals/I&O/Wt Last Vital Signs Temp 99.9 F H 10/15/21 07:09 Pulse 108 H 10/15/21 10:55 Resp 26 H 10/15/21 10:55 BP 142/92 10/15/21 10:55 Pulse Ox 91 10/15/21 10:55 10/14/21 10/15/21 10/15/21 22:59 06:59 14:59 Intake Total 2200 / 2200 Balance 2200 / 2200 Weight last 48 hrs Weight 104.326 kg Physical Exam Const: COMMON NORMALS: no acute distress and patient oriented x3 GENERAL APPEARANCE: cooperative and comfortable HENMT: COMMON NORMALS: normocephalic HEAD & SCALP: normocephalic Eye: COMMON NORMALS: Equal, round and reactive pupils present and EOMs intact bilaterally GENERAL EYE: appearance normal, both eyes and all related st ructures PUPIL: Yes Equal, round and reactive pupils present Neck/C-Spine: COMMON NORMALS: full ROM and no lymphadenopathy THYROID: Thyroid normal Lymph: LYMPHATIC: no lymphadenopathy noted Resp: COMMON NORMALS: normal respiratory effort, No retractions, No use of accessory muscles and clear to auscultation bilaterally AUSCULTATION: clear to auscultation bilaterally Cardio: COMMON NORMALS: regular rate, regular rhythm, S1 normal heart sound present, S2 normal heart sound present, No gallops present (Cardio), No clicks present (Cardio) and No murmurs present (Cardio) RATE: regular rate RHYTHM: regular rhythm HEART SOUNDS: S1 normal heart sound present and S2 normal heart sound present GI: COMMON NORMALS: Normal to inspection, nondistended, normoactive bowel sounds present, Soft to palpation, non-tender and No hepatosplenomegaly present PALPATION: Yes Soft to palpation and Yes No hepatosplenomegaly present Extremity: COMMON NORMALS: normal to inspection, full ROM and no pedal edema Neuro: COMMON NORMALS: patient oriented x3, CN's II-XII intact bilaterally, moves all extremities and no focal motor deficits Psych: COMMON NORMALS: mental status grossly normal, Normal thought process present and cooperative THOUGHT PROCESS: Normal thought process present Data : 10/15/21 07:38 10/15/21 07:38 Micro: Microbiology 10/15/21 09:52 Blood Culture - Preliminary Blood SPECIMEN COLLECTED 11/21/21 09:48 Blood Culture - Preliminary Blood SPECIMEN COLLECTED A&P Assessment and plan (1) Pulmonary embolism: CT angiogram of the chest shows multiple bilateral pulmonary emboli in the lobar and segmental branches RV LV ratio at 0.74, normal Likely pulmonary embolism associate with history of COVID-19 Start therapeutic Lovenox Oxygen therapy protocol Was told that she had a right superficial venous DVT, will do bilateral extremity ultrasound for DVT Serial troponins, serial EKGs Cardiac echocardiogram Full code Lovenox for DVT prophylaxis Status: Acute (2) History of COVID-19: Symptoms began September 24 Tested + September 29 Is out of isolation window Status: Acute (3) Pleuritic chest pain: Likely secondary to pneumonia, pulmonary embolism, Serial troponins, serial EKGs Telemetry monitoring Continue aspirin 81 mg, atorvastatin Status: Acute (4) Hypoxia: Secondary pulmonary embolism, pneumonia Status: Acute (5) Pneumonia: Bibasilar pneumonia likely secondary to COVID-19, second bacterial pneumonia, pulmonary was of Start broad-spectrum antibiotic therapy, vancomycin, Primaxin MRSA PCR Blood cultures, sputum cultures, urine bacterial antigens DuoNeb treatments, oxygen therapy Status: Acute Attestations Medical Necessity Statement*: Patient requires hospitalization, inpatient, greater than 2 midnights, for pulmonary embolism, pleuritic past chest pain, pneumonia Coding Level of Care Code Acute Drum Maker for [facility] Fwd Diagnoses Pulmonary embolism I26.99 History of COVID-19 Z86.16 Pleuritic chest pain R07.81 Hypoxia R09.02 Pneumonia J18.9
--- NOTE | 2021-10-15 13:00 | PC.NURSE ---
Dr notified Asked Dr of pt hx of COvid. stated she is beyond 21 days so she does not need isolation.
--- NOTE | 2021-10-15 13:08 | USCV_ITS ---
Enriqueta Mackey Age: 51 Gender: F : 1970 Exam Date: 10/15/2021 14:26 Ordering Phys: Goran Starr MD Technologist: Anne Perez [place] [facility] [place]: DVT HISTORY: Pulmonary embolism. PROCEDURES: Comparison: none available. Venous duplex imaging was performed in bilateral lower extremities. The following venous structures were evaluated: common femoral vein, profunda vein, proximal portion of the greater saphenous vein, superficial femoral vein, and the popliteal vein. In addition, the posterior tibial and peroneal trunk were evaluated. Serial compression, augmentation maneuvers, and spectral Doppler flow evaluation were performed. FINDINGS: No evidence of DVT seen in any vessel visualized at this time. The veins were found to be easily compressible with spontaneous blood flow. Non pulsatile flow pattern. CONCLUSIONS No evidence of DVT in the above-mentioned identifiable veins. Dr Gildardo Irving MD [facility] (Electronically Signed) Final Date: 16 October 2021 16:55 S
--- NOTE | 2021-10-15 13:27 | ECG_ITS ---
[facility] Test Date: 2021-10-15 Pat Name: Enriqueta Mackey Department: Room: 102 Gender: Female Administrative Library Assistant: : 1970 Requested By: Albert Vasquez Order Number: [id number] Nazia MD: Gildardo Irving M.D. Measurements Intervals [place] Rate: 104 P: 17 NV: 164 QRS: 20 QRSD: 90 T: -11 QT: 325 QTc: 428 Interpretive Statements SINUS TACHYCARDIA MODERATE T-WAVE ABNORMALITY, CONSIDER ANTERIOR ISCHEMIA [-0.1+ mV T WAVE IN V3/V4] Compared to ECG 10/15/2021 11:43:51 Possible ischemia now present T-wave abnormality still present Electronically Signed On 10-15-2021 15:57:39 FACULTY MEMBER by Gildardo Irving M.D. [id number]
[2021-10-15] MEDS: pantoprazole DR 40 mg Tablet PO (13:51)
[2021-10-15 14:06] LABS: Troponin 5 6HR 10.05 ng/L (0-10); Troponin 5 6HR Delta -1.95 ng/L (0-12)
[2021-10-15] MEDS: HYDROcodone-acetaminophen 5-325 mg Tablet 1 TAB PO (15:15)
[2021-10-15] MEDS: vancomycin 1,000 MG in sodium chloride 0.9% 250 ML 250 MG IV (15:20)
[2021-10-15] MEDS: HYDROmorphone 1 mg/mL INJ 1 mL IVP ×2 (16:28→20:30)
[2021-10-15] MEDS: gabapentin 300 mg Capsule PO (17:37)
--- NOTE | 2021-10-15 19:00 | PC.NURSE ---
shift note pt arrived from ER. She is still in pain. Pt stated hydrocodone and flexeril she takes at home does not help. Notified DrJesi since pt is still complaining of pain on her left chest area. noted that pt has left side pneumonia and bilateral PEs. call light provided to pt.
--- NOTE | 2021-10-15 19:07 | PC.NURSE ---
Per Dr Starr Pt significant other is going to stay with her overnight.
[2021-10-15] MEDS: trazodone 50 mg Tablet PO (20:29)
[2021-10-15] MEDS: enoxaparin 100 mg/mL Syringe SUBCUT (23:29)
[2021-10-16] VITALS (14 sets, daily range): BP systolic 110–175; BP diastolic 72–105; PULSE 80–107; RESP 18–35; TEMP 36.5–36.9; O2SAT 93–98
[2021-10-16] MEDS: HYDROmorphone 1 mg/mL INJ 1 mL IVP ×4 (00:50→18:30)
[2021-10-16] MEDS: vancomycin 1,000 MG in sodium chloride 0.9% 250 ML 250 MG IV ×2 (03:27→14:43)
[2021-10-16 06:50] LABS: Basophils # 0.1 10^3/uL (0.0-0.1); Basophils % 0.5 %; Eosinophils # 0.2 10^3/uL (0.0-0.8); Eosinophils % 1.4 %; Hematocrit 37.3 % (37.0-47.0); Hemoglobin 10.8 g/dL (11.5-15.3); Lymphocytes # 2.3 10^3/uL (0.8-4.8); Lymphocytes % 19.8 %; Mean Corpuscular Hemoglobin 30.1 pg (28.0-34.0); Mean Corpuscular Volume 103.9 fl (81-99); Mean Platelet Volume 11.9 fL (7.4-10.4); Monocytes # 1.2 10^3/uL (0.2-0.9); Monocytes % 10.2 %; Neutrophils # 7.96 10^3/uL (1.8-7.7); Neutrophils % 67.7 %; Nucleated Red Blood Cells % 0 %; Platelet Count 195 10^3/cmm (130-400); Red Blood Count 3.59 10^6/uL (4.1-5.3); Red Cell Distribution Width 13.5 % (12.1-15.1); White Blood Count 11.8 10^3/uL (4.0-10.0)
[2021-10-16 07:06] LABS: Alanine Aminotransferase 19 U/L (0-33); Albumin Level 2.5 g/dL (3.5-5.2); Alkaline Phosphatase 77 IU/L (35-105); Blood Urea Nitrogen 6 mg/dL (6-20); Carbon Dioxide 20 mmol/L (22-29); Chloride 104 mmol/L (98-107); Globulin 3.8 g/dL (1.3-4.6); Glomerular Filtration Rate 87.9 mL/min (90-130); Glucose 94 mg/dL (65-115); Osmolality Calculated 277 mOsm/kg (285-295); Phosphorus 2.5 mg/dL (2.5-4.5); Sodium 135 mmol/L (136-145); Thyroid Stimulating Hormone 3.46 uIU/mL (0.27-4.20); Total Bilirubin 1.3 mg/dL (0.15-1.2); Total Protein 6.3 g/dL (6.6-8.7)
[2021-10-16 07:13] LABS: Anion Gap 14.8 (5-19); Aspartate Amino Transferase 16 U/L (0-32); Potassium 3.8 mmol/L (3.5-5.1)
[2021-10-16 07:36] LABS: Chol HDL Ratio 2.78 mg/dL (0.0-4.40); Cholesterol 111 mg/dL (0-200); HDL Cholesterol 40 mg/dL (60-100); LDL Cholesterol Calculated 59 mg/dL (50-129); LDL HDL Ratio 1.48 RATIO (0.00-3.22); NT Pro B Type Natriuretic Pept 123 pg/mL (0-125); Triglycerides 59 mg/dL (0-150)
[2021-10-16] MEDS: ondansetron 2 mg/ML SDV 2 mL 4 MG IVP ×2 (07:36→17:28)
[2021-10-16 07:49] LABS: Estmated Average Glucose 111; Hemoglobin A1C 5.5 % (4.0-6.0)
[2021-10-16] MEDS: lisinopril 20 mg Tablet PO (08:26)
[2021-10-16] MEDS: pantoprazole DR 40 mg Tablet PO (08:26)
[2021-10-16] MEDS: gabapentin 300 mg Capsule PO ×2 (08:26→18:29)
--- NOTE | 2021-10-16 09:10 | PC.CHAP ---
Pastoral Care Encounter/Spiritual Assessment Type of Contact [] Declined building wrecker visit [] Patient/Family/Request visit [] Outpatient visit [] Follow-up visit [] Physician referral [] Code/Alert [x] Routine visit [] Staff referral [] Actively dying [] Patient sleeping [x] Family support [] [] Out of room [] Palliative care [] [] Receiving care in room [] Pre-surgical visit [] Trauma [] Long length of stay [] ICU visit [] Other: Relational/Emotional Strength [] Patient feels connected with others/family/visitors/staff [] Distress [] Loneliness/isolation [] Abandonment Spirituality of Patient [] Person of Calli [] Attends Anabaptism of their Calli [] Believes in Prayer [] Reads Bible or Advent materials [] There are Spiritual issues to be addressed Washer Assembler Interventions [x] Prayer [x] Active listening [x] Non-anxious presence [x] Spiritual/emotional support [] Crisis/trauma care [] Spiritual counseling [] Bereavement support [] Provided bereavement packet [] Provided Bible/devotional materials [] Provided toy/stuffed animal, coloring book to patient or family member [] Provided Communion [] Anointing/[place] [] Salvation [x] Completed spiritual assessment [] Other: Impact on Illness or Injury [] Angry [] Fearful [] Anxious [] Often cries [] Exhaustion [] Unable to work [] Unable to attend hindu [] Unable to walk/stand [] Unable to read [] Unable to drive [] Unable to eat/drink [] Unable to sleep [] Unable to be with family [] Patient intubated [] Other: Summary feeling some better... the pain has lessened... Time spent with patient 5 min
[2021-10-16] MEDS: enoxaparin 100 mg/mL Syringe SUBCUT ×2 (11:20→23:47)
--- NOTE | 2021-10-16 12:45 | PC.OT ---
OT EVALUATION ORDERS RECEIVED. OT SCREEN COMPLETED. PATIENT ABLE TO PERFORM ADLS BUT WITH SOB. REPORTS LIMITED L UE USE DUE TO CLOTS IN LEFT LUNG. HANDOUTS GIVEN ON ONE HANDED ADLS/PURSED LIP BREATHING AND ENERGY CONSERVATION.
[2021-10-16] MEDS: metoclopramide 5 mg/mL SDV 2 mL IVP (12:48)
--- NOTE | 2021-10-16 13:08 | USCV_ITS ---
Enriqueta Mackey Age: 51 Gender: F : 1970 Exam Date: 10/16/2021 06:31 Ordering Phys: Goran Starr MD Technologist: MAIRE Exam Location: [facility] [place] Indication: SHORTNESS OF BREATH BP: 136 / 74 HR: 83 Rhythm: Sinus Technical Quality: Technically difficult study MEASUREMENTS (Male / Female) Normal Values 2D ECHO LV Diastolic Diameter PLAX 3.7 cm 4.2 - 5.9 / 3.9 - 5.3 cm LV Systolic Diameter PLAX 2.5 cm IVS Diastolic Thickness 1.2 cm 0.6 - 1.0 / 0.6 - 0.9 cm IVS Systolic Thickness 1.8 cm LVPW Diastolic Thickness 1.6 cm 0.6 - 1.0 / 0.6 - 0.9 cm LVPW Systolic Thickness 1.8 cm RV Chamber Size 3.2 cm LVOT Diameter 2.0 cm LV Ejection Fraction 2D Teich 60.9 % LA Diameter 2.9 cm LA Width 2.8 cm LA Height 4.0 cm RA Width 2.8 cm RA Height 4.2 cm Aorta at Sinotubular Diameter 2.5 cm DOPPLER AV Peak Velocity 89.0 cm/s LVOT Peak Velocity 78.0 cm/s AV Area Cont Eq vti 3.0 cm squared AV Area Cont Eq pk 2.8 cm squared MV Area PHT 5.1 cm squared Mitral E to A Ratio 0.9 MV E' Velocity 35.5 cm/s Mitral E to MV E' Ratio 5.9 Mitral E to LV E' Lateral Ratio 8.1 Mitral E to LV E' Septal Ratio 4.7 TR Peak Velocity 241.0 cm/s TR Peak Gradient 23.2 mmHg PV Peak Velocity 97.0 cm/s RV Acceleration Time 0.1 s RV Ejection Time 0.3 s RV AcT/ET 0.5 FINDINGS Left Ventricle Normal left ventricular size. LV systolic function is normal with EF of 55-60%. No regional wall motion abnormalities. Grade 1 diastolic function Right Ventricle The right ventricle is normal in size and function. Right Atrium The right atrium is normal in size. Left Atrium The left atrium is normal in size. Mitral Valve Structurally normal mitral valve without significant stenosis or prolapse. There is trace mitral regurgitation. Aortic Valve Structurally normal aortic valve without significant sclerosis or stenosis. There is no aortic regurgitation. Tricuspid Valve Structurally normal tricuspid valve without significant stenosis. Mild Tricuspid regurgitation. Insufficient TR jet to calculate RVSP Pulmonic Valve Grossly normal Pericardium Normal pericardium without effusion. Pleural effusion noted Aorta Normal ascending aorta dimension. CONCLUSIONS LV systolic function is normal with EF of 55-60% Grade 1 diastolic dysfunction Trace mitral regurgitation Trace tricuspid regurgitation Pleural effusion seen No comparison studies available Issa Smith MD (Electronically Signed) Final Date: 16 October 2021 09:23 S
--- NOTE | 2021-10-16 15:43 | P.PN_ITS ---
Subjective Subjective: Interval history: She was seen and examined this morning, continues to complain of left-sided chest pain, with inspiration, radiating to her back, continues to have nausea. She has remained afebrile, continues to saturate well on minimal supplemental oxygen. Vancomycin has been discontinued as MRSA PCR is negative Medications: Reviewed: Yes Vitals/I&O/Wt Last Vital Signs Temp 97.9 F 10/16/21 08:00 Pulse 84 10/16/21 08:00 Resp 35 H 10/16/21 12:52 BP 175/105 10/16/21 08:00 Pulse Ox 94 10/16/21 08:00 10/16/21 10/16/21 10/16/21 06:59 14:59 22:59 Intake Total 450 / 3336 120 / 120 Output Total 300 / 300 Balance 150 / 3036 120 / 120 Weight last 48 hrs Weight 104.326 kg Physical Exam Const: COMMON NORMALS: patient oriented x3 HENMT: COMMON NORMALS: normocephalic and atraumatic HEAD & SCALP: normocephalic and atraumatic Chest: CHEST: Yes Symmetrical chest wall rise Resp: COMMON NORMALS: clear to auscultation bilaterally EFFORT & INSPECTION: Yes symmetric chest movement AUSCULTATION: clear to auscultation bilaterally Cardio: COMMON NORMALS: regular rate, regular rhythm, S1 normal heart sound present, S2 normal heart sound present, No gallops present (Cardio), No murmurs present (Cardio), No rub (Cardio) and Peripheral pulses 2+ throughout RATE: regular rate RHYTHM: regular rhythm HEART SOUNDS: S1 normal heart sound present and S2 normal heart sound present PERIPHERAL PULSES: Peripheral pulses 2+ throughout GI: COMMON NORMALS: Normal to inspection, nondistended, normoactive bowel sounds present, Soft to palpation, non-tender, No hepatosplenomegaly present and no masses AUSCULTATION: Yes normoactive bowel sounds PALPATION: Yes Soft to palpation and Yes No hepatosplenomegaly present RECTAL EXAM: deferred Extremity: COMMON NORMALS: no clubbing, cyanosis or edema and no pedal edema Neuro: COMMON NORMALS: patient oriented x3 Data : 10/16/21 05:27 10/16/21 05:27 Micro: Microbiology 10/15/21 18:24 MRSA Culture - Final Nose 10/15/21 09:48 Blood Culture - Preliminary Blood NEGATIVE TO DATE 10/15/21 09:52 Blood Culture - Preliminary Blood NEGATIVE TO DATE 10/15/21 23:40 Bacterial Antigens - Final Urine,Clean Catch 10/15/21 23:40 Legionella Urinary Antigen - Final Urine Catheterized A&P Assessment and plan (1) Pulmonary embolism: CT angiogram of the chest shows multiple bilateral pulmonary emboli in the lobar and segmental branches RV LV ratio at 0.74, normal. Likely pulmonary embolism associate with history of COVID-19. 2D echo: Normal LV systolic function with EF of 55-60, grade 1 diastolic dysfunction no gross, valvular abnormality, no RV strain. Troponin trend: Without significant delta Lower extremity Doppler vein: On therapeutic Lovenox Supplemental oxygen as needed. Status: Acute (2) History of COVID-19: Symptoms began September 24 Tested + September 29 Is out of isolation window Status: Acute (3) Pleuritic chest pain: Likely secondary to pneumonia, pulmonary embolism, Serial troponins, serial EKGs Telemetry monitoring Continue aspirin 81 mg, atorvastatin Status: Acute (4) Hypoxia: Secondary pulmonary embolism, pneumonia Status: Acute (5) Pneumonia: Bibasilar pneumonia likely secondary to COVID-19, second bacterial pneumonia, pulmonary was of Start broad-spectrum antibiotic therapy, vancomycin, Primaxin MRSA PCR: Negative Blood cultures:NTD sputum cultures: urine bacterial antigens: Negative Urine Legionella antigen: Negative DuoNeb treatments, oxygen therapy Status: Acute Attestations Medical Necessity Statement*: Patient is to be in hospital for management of above defined problems. Coding Level of Care Code Acute Sales Communications Manager for [facility] Fwd Diagnoses Pulmonary embolism I26.99 History of COVID-19 Z86.16 Pleuritic chest pain R07.81 Hypoxia R09.02 Pneumonia J18.9
[2021-10-16] MEDS: ketorolac 10 mg Tablet PO ×2 (17:27→23:47)
[2021-10-16] MEDS: tizanidine 4 mg Tablet PO (18:29)
[2021-10-16] MEDS: trazodone 50 mg Tablet PO (19:37)
[2021-10-17] VITALS (12 sets, daily range): BP systolic 121–139; BP diastolic 76–88; PULSE 82–109; RESP 15–27; TEMP 36.7–37.1; O2SAT 87–99
[2021-10-17] MEDS: HYDROmorphone 1 mg/mL INJ 1 mL IVP ×3 (00:30→11:05)
[2021-10-17] MEDS: metoclopramide 5 mg/mL SDV 2 mL IVP (00:31)
[2021-10-17] MEDS: ondansetron 2 mg/ML SDV 2 mL 4 MG IVP (04:07)
[2021-10-17 06:00] LABS: Basophils % 0.5 %; Eosinophils # 0.3 10^3/uL (0.0-0.8); Eosinophils % 3.1 %; Hematocrit 33.1 % (37.0-47.0); Hemoglobin 10.2 g/dL (11.5-15.3); Lymphocytes # 2.1 10^3/uL (0.8-4.8); Mean Corpuscular HGB Conc 30.8 g/dL (30.0-36.0); Mean Corpuscular Hemoglobin 29.3 pg (28.0-34.0); Mean Corpuscular Volume 95.1 fl (81-99); Mean Platelet Volume 12.8 fL (7.4-10.4); Monocytes % 11.9 %; Neutrophils # 4.68 10^3/uL (1.8-7.7); Neutrophils % 58.1 %; Nucleated Red Blood Cells % 0 %; Platelet Count 280 10^3/cmm (130-400); Red Blood Count 3.48 10^6/uL (4.1-5.3); Red Cell Distribution Width 13.4 % (12.1-15.1); White Blood Count 8.1 10^3/uL (4.0-10.0)
[2021-10-17 06:31] LABS: Alanine Aminotransferase 18 U/L (0-33); Albumin Level 2.8 g/dL (3.5-5.2); Alkaline Phosphatase 75 IU/L (35-105); Anion Gap 14.3 (5-19); Aspartate Amino Transferase 20 U/L (0-32); Blood Urea Nitrogen 6 mg/dL (6-20); Calcium 7.8 mg/dL (8.5-10.5); Carbon Dioxide 25 mmol/L (22-29); Chloride 102 mmol/L (98-107); Globulin 3.1 g/dL (1.3-4.6); Glomerular Filtration Rate 87.9 mL/min (90-130); Glucose 99 mg/dL (65-115); Magnesium 1.9 mg/dL (1.7-2.3); Osmolality Calculated 284 mOsm/kg (285-295); Phosphorus 2.5 mg/dL (2.5-4.5); Potassium 3.3 mmol/L (3.5-5.1); Sodium 138 mmol/L (136-145); Total Protein 5.9 g/dL (6.6-8.7)
[2021-10-17] MEDS: pantoprazole DR 40 mg Tablet PO (08:47)
[2021-10-17] MEDS: tizanidine 4 mg Tablet PO ×2 (08:47→17:21)
[2021-10-17] MEDS: lisinopril 20 mg Tablet PO (08:47)
[2021-10-17] MEDS: gabapentin 300 mg Capsule PO ×2 (08:47→17:21)
[2021-10-17] MEDS: ketorolac 10 mg Tablet PO ×2 (08:48→15:49)
[2021-10-17] MEDS: enoxaparin 100 mg/mL Syringe SUBCUT (11:05)
--- NOTE | 2021-10-17 16:09 | P.DS_ITS ---
Discharge Providers Date of Admission: 10/15/21 13:08 Date of Discharge: October 17, 2021 Attending Provider at Admission: Goran Starr MD Attending Provider at Discharge: Kashif Trujillo MD Primary Care Provider: Anthony Diane DO Diagnoses at Discharge Discharge Diagnosis (1) Pulmonary embolism: Status: Acute (2) History of COVID-19: Status: Acute (3) Pleuritic chest pain: Status: Acute (4) Hypoxia: Status: Acute (5) Pneumonia: Status: Acute Reason for Visit Reason for Visit: fever, cp, coughoff quarentine covid + a week Hospital Course Hospital Course 51 year old female with a past medical history of chronic pain on hydrocodone and gabapentin, cervical radiculopathy, osteoarthritis, history of Covid positivity September 29, symptoms began September 24, presents to [facility] for continued shortness of breath, fevers, left chest pain. During the hospital stay she was managed for acute hypoxia, secondary to acute pulmonary embolism, pneumonia, CTA chest showed:Multiple bilateral pulmonary emboli in lobar and segmental branches, extensive bilateral pulmonary infiltra earle especially in the left lung base consistent with bilateral pneumonia. RV/LV ratio is normal at 0.74. Lower extremity Doppler vein was negative for DVT, 2D echo:Normal LV systolic function with EF of 55-60, grade 1 diastolic dysfunction no gross, valvular abnormality, no RV strain. Troponin trend: Without significant delta. She was initially kept on therapeutic anticoagulation with Lovenox, On broad-spectrum antibiotics,Supplemental oxygen as needed, and other conservative respiratory support measures,MRSA PCR: Negative,Blood cultures:NTD ,urine bacterial antigens: Negative, Urine Legionella antigen: Negative. She was also complaining of pleuritic chest pain, likely secondary to acute PE and pneumonia, for which she responded well to p.o. Toradol, and was discharged on additional Toradol as needed for additional 3 days, she was also discharged levofloxacin p.o. 500 daily for additional 5 days to complete the antibiotics course for pneumonia.On discharge she was switched to Eliquis for additional 3 months. She qualified for 3 L home oxygen on discharge with ambulation, likely secondary to new PE. Patient responded well to above medical management and she is being discharged i n stable condition to home.She will continue to follow with her primary care physician as an outpatient. Physical Exam Const: COMMON NORMALS: patient oriented x3 HENMT: COMMON NORMALS: normocephalic and atraumatic HEAD & SCALP: normocephalic and atraumatic Chest: CHEST: Yes Symmetrical chest wall rise Resp: COMMON NORMALS: clear to auscultation bilaterally EFFORT & INSPECTION: Yes symmetric chest movement AUSCULTATION: clear to auscultation bilaterally Cardio: COMMON NORMALS: regular rate, regular rhythm, S1 normal heart sound present, S2 normal heart sound present, No gallops present (Cardio), No murmurs present (Cardio), No rub (Cardio) and Peripheral pulses 2+ throughout RATE: regular rate RHYTHM: regular rhythm HEART SOUNDS: S1 normal heart sound present and S2 normal heart sound present PERIPHERAL PULSES: Peripheral pulses 2+ throughout GI: COMMON NORMALS: Normal to inspection, nondistended, normoactive bowel sounds present, Soft to palpation, non-tender, No hepatosplenomegaly present and no masses AUSCULTATION: Yes normoactive bowel sounds PALPATION: Yes Soft to palpation and Yes No hepatosplenomegaly present RECTAL EXAM: deferred Extremity: COMMON NORMALS: no clubbing, cyanosis or edema and no pedal edema Neuro: COMMON NORMALS: patient oriented x3 Discharge Data Data Completed and Pending: Completed Studies During Hospitalization Category Date Time Status CT angio chest PE protcl [id number] Urge nt Cat Scan 10/15/21 09:51 Completed XR chest 1V frank ble [id number] Urgent Exams 10/15/21 07:26 [place] [id number] Routin e Ultrasound 10/15/21 13:08 Completed CV. echo complete * [id number] Routine Ultrasound 10/16/21 13:08 Completed Pending at discharge Category Date Time Status Blood Culture Sta t Lab 10/15/21 09:52 Results Complete Blood Co unt w/Auto AM LABS Lab 10/18/21 04:00 Ordered Comprehensive Met abolic Panel AM LA BS Lab 10/18/21 04:00 Ordered Magnesium AM LABS Lab 10/18/21 04:00 Ordered Phosphorus AM LAB S Lab 10/18/21 04:00 Ordered Sputum Culture an d Gram Stain Stat Lab 10/15/21 12:51 Uncollected Labs from last 24 hours 10/17/21 10/17/21 04:46 04:46 WBC 8.1 RBC 3.48 L Hgb 10.2 L Hct 33.1 L MCV 95.1 D MCH 29.3 MCHC 30.8 D RDW 13.4 Plt Count 280 D MPV 12.8 H Neut % (Auto) 58.1 Lymph % (Auto) 26.0 [place] % (Auto) 11.9 Eos % (Auto) 3.1 Baso % (Auto) 0.5 Neut # (Auto) 4.68 Lymph # (Auto) 2.1 [place] # (Auto) 1.0 H Eos # (Auto) 0.3 Baso # (Auto) 0.0 Nucleated RBC % (a uto) 0 Nucleated RBCs # 0.0 Sodium 138 Potassium 3.3 L Chloride 102 Carbon Dioxide 25 Anion Gap 14.3 BUN 6 Creatinine 0.7 GFR Calculation 87.9 L Glucose 99 Calculated Osmolal ity 284 L Calcium 7.8 L Phosphorus 2.5 Magnesium 1.9 Total Bilirubin 1.0 AST 20 ALT 18 Alkaline Phosphata se 75 Total Protein 5.9 L Albumin 2.8 L Globulin 3.1 Vitals: Last Vital Signs Temp 98.7 F 10/17/21 12:00 Pulse 82 10/17/21 12:00 Resp 19 H 10/17/21 12:00 BP 121/76 10/17/21 12:00 Pulse Ox 96 10/17/21 15:51 Discharge Plan Discharge Patient Disposition: Home Condition: Stable Prescriptions: New ketorolac 10 mg Tablet 10 mg PO Q8H 3 Days Qty: 9 RF: 0 Eliquis 5 mg tablet 5 mg PO BID Qty: 60 RF: 3 levofloxacin 500 mg tablet 500 mg PO DAILY 5 Days Qty: 5 RF: 0 Continued trazodone 50 mg tablet 50 mg PO BEDTIME RF: 0 vitamin B complex [B Complex-Vitamin B12] Tablet 1 tab PO DAILY RF: 0 meloxicam 15 mg tablet 15 mg PO DAILY Qty: 30 RF: 2 hydrocodone-acetaminophen 5-325 mg tablet 1 tab PO TID MDD 2 PRN (Reason: pain ) 30 Days Qty: 90 RF: 0 gabapentin 300 mg capsule 300 mg PO BID 30 Days Qty: 60 RF: 1 tizanidine 4 mg tablet 4 mg PO BID PRN (Reason: muscle spasticity) Qty: 60 RF: 0 lisinopril 20 mg Tablet 20 mg PO DAILY RF: 0 medroxyprogesterone 150 mg/mL suspension 150 mg IM Q90D RF: 0 Discharge Orders: Discharge Order (Routine); Ordered 10/17/21 Ordered By: Kashif Trujillo Other Ambulatory Orders: DME: Oxygen (Order) Location: None Selected Ordered By: Kashif Trujillo DME: Walker (Order) Location: None Selected Ordered By: Kashif Trujillo Referrals: Anthony Diane, [Primary Care Provider] - 1 week (You should hear from Dr Diane's office with your follow up appointment if you have not heard from them By tomorrow afternoon please call to arange your follow up care.) Discharge Diet: Regular Discharge Activity: Increase activity as tolerated Patient Instructions: Ketorolac (By mouth) (Toradol), Levofloxacin (By mouth) (Levaquin, Levaquin Leva-smitha), Apixaban (By mouth), Pulmonary Embolism (DC), Opioid Safety Discharge Attestations Time Spent in Discharge Care*: less than 30 min Specific Discharge Activities: educating patient, discussing with pcp/other providers, discussing with director case/social workers/dc planners, documenting/other paperwork and evaluating patient/reviewing data Status at Discharge: Cognitive status at discharge: cognitively intact , Behavioral status at discharge: cooperative , Functional status at discharge: independent ambulation Overall status at discharge: patient is progressing back to baseline Quality Metrics Clinical Quality Measures During this hospital stay, did patient experience: None Coding Level of Care Code Acute Chg FW DC note Diagnoses Pulmonary embolism I26.99 History of COVID-19 Z86.16 Pleuritic chest pain R07.81 Hypoxia R09.02 Pneumonia J18.9
--- NOTE | 2021-10-17 18:45 | PC.NURSE ---
Discharge Note Patient discharged to Home via private vehicle accompanied by family. Discharge instructions reviewed with patient and/or paper sales representative. Mobile pharmacy medications and/or prescriptions provided. Belongings/home medications returned.
== END 2021-10-17 18:45 | disposition home or self-care (01) | DRG 175 ==
LOC: ER 10:13 → CSU 16:54
PROVIDERS: Admitting Provider Family Medicine; Emergency Provider Emergency Medicine; PCP Family Medicine; Visit Provider Internal Medicine
DX: I26.94 Multiple subsegmental thrombotic pulmonary emboli without acute cor pulmonale (principal); J15.9 Unspecified bacterial pneumonia; I10 Essential (primary) hypertension; G89.29 Other chronic pain; Z87.440 Personal history of urinary (tract) infections; M54.12 Radiculopathy, cervical region; Z79.891 Long term (current) use of opiate analgesic; U09.9 Post COVID-19 condition, unspecified
CPT/HCPCS: 36415; 71045; 71275; 80053; 80061; 83036; 83605; 83735; 83880; 84100; 84145; 84443; 84484; 85025; 86403; 87040; 87449; 87641; 93005; 93306; 93970; 96365; 96367; 96372; 96375; 97110; 97161; 99285; J0743; J1170; J1650; J1885; J1956; J2270; J2405; J2765; J3370; J3475; J7030; J7050; Q9967

== ENCOUNTER 2021-10-30 12:00 | Outpatient (CLI) | payer BC, SELFPAY | END 2021-10-30 12:01 | disposition home or self-care (01) | LOC: SLEEP 10-31 08:20 | PROVIDERS: PCP Family Medicine; Visit Provider Clinical Nurse Specialist Adult Health | DX: R06.81 Apnea, not elsewhere classified (principal) | CPT/HCPCS: G0399 ==

== ENCOUNTER → 2021-11-01 09:17 | Outpatient (BNVA) | payer BC, SELFPAY | PROVIDERS: PCP Family Medicine; Visit Provider Anesthesiology Pain Medicine | DX: G89.29 Other chronic pain (principal); M47.816 Spondylosis without myelopathy or radiculopathy, lumbar region; M43.06 Spondylolysis, lumbar region; M51.36 Other intervertebral disc degeneration, lumbar region; M48.02 Spinal stenosis, cervical region; M54.12 Radiculopathy, cervical region; M16.12 Unilateral primary osteoarthritis, left hip; M62.830 Muscle spasm of back; Z86.16 Personal history of COVID-19; Z79.891 Long term (current) use of opiate analgesic | CPT/HCPCS: 99214 ==

== ENCOUNTER → 2021-12-12 15:01 | Outpatient (BNVA) | payer BC, SELFPAY | PROVIDERS: PCP Family Medicine; Visit Provider Physician Assistant | DX: M54.2 Cervicalgia (principal) | CPT/HCPCS: 72050 ==

== ENCOUNTER 2021-12-13 11:03 | Outpatient (CLI) | payer BC, SELFPAY ==
--- NOTE | 2021-12-13 11:09 | MM_ITS ---
WS: [id number] SCREENING DIGITAL MAMMOGRAM WITH CAD HISTORY: SCREENING COMPARISON: 01/07/2019, 08/11/2008 Bilateral CC and MLO views submitted. Computer aided detection analyzed. Breast composition: There are scattered areas of fibroglandular density. No suspicious masses or calc ifications. Patient describes a palpable area in the upper-outer quadrant of the RIGHT breast. Additi onal imaging is necessary for further evaluation. MM/[place] [id number] IMPRESSION: BI-RADS: 0-Incomplete: Need additional imaging evaluation FOLLOW UP: Need Additional Imaging Recommend diagnostic imaging of the palpable area patient indicated in the RIGH T upper quadrant. Additional spot compression views and ultrasound recommended.
== END 2021-12-13 11:04 | disposition home or self-care (01) ==
LOC: RADSHAW 11:08
PROVIDERS: PCP Family Medicine; Visit Provider Family Medicine
DX: Z12.31 Encounter for screening mammogram for malignant neoplasm of breast (principal)
CPT/HCPCS: 77067

== ENCOUNTER 2022-01-11 15:05 | Outpatient (CLI) | payer BC, SELFPAY ==
--- NOTE | 2022-01-11 15:07 | US_ITS ---
WS: [id number] Right breast ultrasound, 01/11/2022 Clinical Data: ABNORMAL MAMMOGRAM Comparison: Mammogram, 01/11/2022 Findings: Imaging of the right breast at the 10:00 position 3 cm from the nipple at the site of the possible pa lpable lesion revealed only normal breast tissue. No masses or cysts could be seen. There were no abn ormal densities. US/US breast RT limited* [id number] Impression: 1. Normal right breast ultrasound. 2. Recommend return to annual screening mammograms.
--- NOTE | 2022-01-11 15:07 | MM_ITS ---
WS: [id number] Right breast diagnostic digital mammogram, 01/11/2022 Clinical Data: ABNORMAL MAMMO Comparison: 12/13/2021, 01/07/2019, 08/11/2008. Findings: Spot compression views in the CC and MLO projection were obtained. In addition right medial lateral view was performed. There was a marker in the upper outer quadrant of the right breast at the site of the questionable nodule. No spiculated masses or clustered calcification occasions are seen. There w ere no abnormal densities or asymmetric tissue in the region of the marker. A right breast ultrasound was performed. MM/[place] [id number] Impression: 1. Negative right breast diagnostic mammogram. 2. Right breast ultrasound will be performed. BIRADS: 1-Negative FOLLOW UP: See Report The CAD body design checker was used. Right
== END 2022-01-11 15:06 | disposition home or self-care (01) ==
LOC: RADSHAW 15:06
PROVIDERS: PCP Family Medicine; Visit Provider Family Medicine
DX: R92.8 Other abnormal and inconclusive findings on diagnostic imaging of breast (principal)
CPT/HCPCS: 76642; 77065

== ENCOUNTER → 2022-01-24 15:56 | Outpatient (BNVA) | payer BC, SELFPAY | PROVIDERS: PCP Family Medicine; Visit Provider Anesthesiology Pain Medicine | DX: M54.12 Radiculopathy, cervical region (principal) | CPT/HCPCS: 36416; 82962 ==

== ENCOUNTER 2022-03-08 13:38 | Outpatient (CLI) | payer BC, SELFPAY | END 2022-03-08 13:39 | disposition home or self-care (01) | LOC: SPT 13:39 | PROVIDERS: PCP Family Medicine; Visit Provider Orthopaedic Surgery | DX: Z46.89 Encounter for fitting and adjustment of other specified devices (principal); M47.22 Other spondylosis with radiculopathy, cervical region; M50.30 Other cervical disc degeneration, unspecified cervical region | CPT/HCPCS: 97760; L0174 ==

== ENCOUNTER 2022-04-11 05:33 | Day surgery (SDC) | payer BC, SELFPAY ==
[2022-04-06 13:23] VITALS: BMI 39.1
[2022-04-06 14:25] LABS: Anion Gap 14.9 (5-19); Blood Urea Nitrogen 12 mg/dL (6-20); Carbon Dioxide 22 mmol/L (22-29); Chloride 107 mmol/L (98-107); Creatinine Clr Calc Pharmacy 120.7838; Glomerular Filtration Rate 87.5 mL/min (90-130); Glucose 142 mg/dL (65-115); Osmolality Calculated 292 mOsm/kg (285-295); Potassium 3.9 mmol/L (3.5-5.1); Sodium 140 mmol/L (136-145)
--- NOTE | 2022-04-06 14:43 | P.ANESASSM_ITS ---
Pre-Anesthetic Assessment Height/Weight: Height 1.7 m Weight 113.398 kg Operation Date: 04/13/22 07:00 Proposed Procedures p ACDF C5/6,6/7--[id number]/[id number] X2/M47.22(Not Applicable) - Mark Olmedo DO Familial anesthetic complications: None Was Beta Rashi taken within 24 hours: N/A Was Clonidine taken within 24 hours: N/A Social No alcohol and No tobacco Exam alert, oriented x 3, clear to auscultation bilaterally and regular rate & rhythm Airway Submandibular: within normal limits Cervical ROM: within normal limits (Mild discomfort with extreme extension) Mallampati: Class II Dentition: full CV/HEM Hypertension Metabolic Morbid Obesity Musc/skel Lower Back Pain and Osteoarthritis/DJD Anesthetic Plan ASA status: 3 Anesthesia: General Medications/Allergies Home Medications Medication Instructions Recorded Confirmed Last Taken Type trazodone 50 mg tablet 50 mg PO BEDTIME 05/05/20 04/06/22 10/14/21 History vitamin B complex (B 1 tab PO DAILY 06/08/21 04/06/22 Unknown History Complex-Vitamin B12) lisinopril 20 mg tablet 20 mg PO DAILY 10/15/21 04/06/22 10/14/21 History norethindrone (contraceptive) 0.35 0.35 mg PO DAILY 12/07/21 04/06/22 Unknown History mg tablet (Sharobel) celecoxib 200 mg capsule (Celebrex) 200 mg PO DAILY 01/24/22 04/06/22 Unknown History Frontier J collar #1 ea 03/08/22 03/12/22 Unknown Rx gabapentin 300 mg capsule 300 mg PO BID 30 Days #60 cap 03/12/22 04/06/22 Unknown Rx hydrocodone 5 mg-acetaminophen 325 1 tab PO TID PRN 30 Days #90 tab 03/12/22 04/06/22 Unknown Rx mg tablet MDD 2 methocarbamol 750 mg tablet 750 mg PO BID #60 tab 03/12/22 04/06/22 Unknown Rx Bone Growth Stimulator E0748 #1 ea 03/19/22 Unknown Rx Allergies Allergy/AdvReac Type Severity Reaction Status Date / Time Dihydroaminopryidine Allergy Mild rash Verified 03/12/22 08:56 Antibiotics acetaminophen [From Midol] Allergy Unknown unknown Verified 03/12/22 08:56 azithromycin [From Zithromax] Allergy Unknown Unknown Verified 03/12/22 08:56 cephalexin [From Keflex] Allergy Unknown Unknown Verified 03/12/22 08:56 doxycycline Allergy Unknown Unknown Verified 03/12/22 08:56 nitrofurantoin Allergy Unknown Unknown Verified 03/12/22 08:56 [From Macrobid] pamabrom [From Midol] Allergy Unknown unknown Verified 03/12/22 08:56 Penicillins Allergy Unknown Unknown Verified 03/12/22 08:56 Sulfa (Sulfonamide Allergy Unknown Unknown Verified 03/12/22 08:56 Antibiotics) naproxen [From Aleve] Allergy Unknown Verified 03/12/22 08:56 [facility] Anesthesia Medical History History of COVID-19 Hypertension Hypoxia Pleuritic chest pain Pneumonia Pulmonary embolism Recurrent UTI Slipped cervical disc Yeast vaginitis Surgical History History of section History of knee surgery Family History Mother Cancer breast Other Diabetes Social History Smoking and tobacco status: former smoker Second hand smoke exposure: No Alcohol intake: never Household members: children Marital status: Current occupational status: employed Current occupation: [employer] History of recent travel: No Data Anesthesia : 04/06/22 13:30 BMP 04/06/22 13:30 Sodium 140 Potassium 3.9 Chloride 107 Carbon Dioxide 22 BUN 12 Creatinine 0.7 Glucose 142 H Calcium 9.0 Cardiac Studies: Echocardiogram 10/16/21
[2022-04-11] VITALS (16 sets, daily range): BP systolic 137–187; BP diastolic 80–128; PULSE 71–89; RESP 12–20; TEMP 36.6–37.1; O2SAT 91–100
--- NOTE | 2022-04-11 | XR_ITS ---
WS: [id number] Cervical spine, C-arm fluoroscopy view, 04/11/2022 Clinical Data: cervical spondylosis Comparison: Cervical spine, 12/12/2021. Findings: The patient has had an anterior cervical disc fusion C5-C7 with disc spacers at C5-C6 and C 6-C7. XR/XR cervical spine 3V* [id number] Impression: Anterior cervical disc fusion C5-C7.
--- NOTE | 2022-04-11 | SCC_ITS ---
Procedure done: 1. Anterior diskectomy C5/6 2. Anterior discectomy C6/7 3. Insertion of cage C5/6 4. Insertion of Cage C6/7 5. Instrumentation with anterior plate from C5-C7 6. Use of allograft 15.9 seconds of fluoroscopic guidance, for a cumulative dose of 5.59 mGy, was provided to Dr. Olmedo by the radiology department. C-arm images of the cervical spine were saved for the patient's permanent record. SCOTTD
[2022-04-11 06:28] LABS: Glucose Point of Care 78 mg/dL (70-110)
[2022-04-11] MEDS: sodium chloride 0.9% 1,000 ML 30 ML IV (06:30)
--- NOTE | 2022-04-11 06:52 | P.ANESUD_ITS ---
Pre-Anesthetic Update Pre-Anesthetic Assessment: Date of Surgery/Procedure: 04/11/22 Preop Bebe gnosis: Cervical Spondylosis w radiculopathy Proposed Procedure: Operation Date: 04/11/22 07:00 Proposed Procedures p ACDF C5/6,6/7--[id number]/[id number] X2/M47.22(Not Applicable) - Mark Olmedo, DO Any changes to Pre-Anesthetic Assessment?: No Last Intake: Intake Last Liquid Date 04/10/22 Last Liquid Time 21:30 Last Solid Date 04/10/22 Last Solid Time 21:30 Vitals: Temperature 97.8 F 04/11/22 06:10 Temperature Source Temporal Artery S can 04/11/22 06:10 Pulse Rate 75 04/11/22 06:10 Respiratory Rate 20 H 04/11/22 06:10 Blood Pressure 187/110 04/11/22 06:10 Blood Pressure Nena n 135 04/11/22 06:10 Pulse Oximetry 98 04/11/22 06:10 Oxygen Delivery Me thod 04/11/22 06:10 Exam: Pre-Anes Outpt Exam: alert, oriented x 3, clear to auscultation bilaterally and regular rate & rhythm Cardiac Studies: Echocardiogram 10/16/21
--- NOTE | 2022-04-11 06:53 | PM.HP ---
Providers/Chief Complaint Primary Care Provider: Anthony Diane DO Chief Complaint: Cervical spondylosis History of Present Illness Enriqueta Mackey is a 52 year old female Patient has been to pain management with Dr. Gary on 01/24 in which she did receive an epidural steroid injection to her cervical spine which did provide her with minimal relief. She continues to have some burning pain to her left shoulder that travels down her arm. She continues to complain of headaches.?Patient rates pain at 4/10 in clinic today. Review of Systems General: Reports: 10 or more systems reviewed and unremarkable except in HPI and below Const: Denies: fever(s) or chills Card: Denies: chest pain or dyspnea on exertion Resp: Denies: dyspnea or productive cough GI: Denies: abdominal pain, nausea or vomiting : Denies: difficulty voiding Musc: Reports: joint pain, joint swelling and limited range of motion Skin/Breast: Denies: changes in skin color or dry skin Neuro: Denies: numbness in extremities or weakness in extremities Psych: Denies: anxiety Varun/Lymph: Denies: easy bruising or easy bleeding Medications/Allergies Home Medications Medication Instructions Recorded Confirmed Last Taken Type trazodone 50 mg tablet 50 mg PO BEDTIME 05/05/20 04/11/22 04/10/22 20:00 History vitamin B complex (B 1 tab PO DAILY 06/08/21 04/11/22 Unknown History Complex-Vitamin B12) lisinopril 20 mg tablet 20 mg PO DAILY 10/15/21 04/11/22 04/10/22 20:00 History norethindrone (contraceptive) 0.35 0.35 mg PO DAILY 12/07/21 04/11/22 04/10/22 20:00 History mg tablet (Sharobel) celecoxib 200 mg capsule (Celebrex) 200 mg PO DAILY 01/24/22 04/11/22 04/09/22 History Stebbins J collar #1 ea 03/08/22 04/09/22 Unknown Rx Bone Growth Stimulator E0748 #1 ea 03/19/22 04/09/22 Unknown Rx duloxetine 20 mg capsule,delayed 20 mg PO DAILY cap 04/09/22 04/09/22 04/09/22 History release gabapentin 300 mg capsule 300 mg PO BID 30 Days #60 cap 04/09/22 04/09/22 04/10/22 Rx hydrocodone 5 mg-acetaminophen 325 1 tab PO TID PRN 30 Days #90 tab 04/09/22 04/09/22 04/11/22 03:45 Rx mg tablet MDD 2 methocarbamol 750 mg tablet 750 mg PO BID #60 tab 04/09/22 04/09/22 04/10/22 15:30 Rx Allergies Allergy/AdvReac Type Severity Reaction Status Date / Time Dihydroaminopryidine Allergy Mild rash Verified 04/09/22 08:43 Antibiotics acetaminophen [From Midol] Allergy Unknown unknown Verified 04/09/22 08:43 azithromycin [From Zithromax] Allergy Unknown Unknown Verified 04/09/22 08:43 cephalexin [From Keflex] Allergy Unknown Unknown Verified 04/09/22 08:43 doxycycline Allergy Unknown Unknown Verified 04/09/22 08:43 nitrofurantoin Allergy Unknown Unknown Verified 04/09/22 08:43 [From Macrobid] pamabrom [From Midol] Allergy Unknown unknown Verified 04/09/22 08:43 Penicillins Allergy Unknown Unknown Verified 04/09/22 08:43 Sulfa (Sulfonamide Allergy Unknown Unknown Verified 04/09/22 08:43 Antibiotics) naproxen [From Aleve] Allergy Unknown Verified 04/09/22 08:43 PFSH Acute PFSH: Medical History History of COVID-19 Hypertension Hypoxia Pleuritic chest pain Pneumonia Pulmonary embolism Recurrent UTI Slipped cervical disc Yeast vaginitis Surgical History History of section History of knee surgery Family History Mother Cancer breast Other Diabetes Social History (Updated 04/09/22 @ 08:54 by Yoselin Wilson LPN) Smoking and tobacco status: former smoker Second hand smoke exposure: No Alcohol intake: never Household members: children Marital status: Current occupational status: employed Current occupation: [employer] History of recent travel: No Vitals/I&O/Wt Last Vital Signs Temp 97.8 F 04/11/22 06:10 Pulse 75 04/11/22 06:10 Resp 20 H 04/11/22 06:10 BP 187/110 04/11/22 06:10 Pulse Ox 98 04/11/22 06:10 Physical Exam Narrative: CONSTITUTIONAL: The patient is a normal appearing [] in no apparent distress. GENERAL: Patient in no acute distress. CARDIAC: Regular rate and rhythm. CHEST: Normal inspiratory effort, normal respiratory rate. ABDOMEN: Soft and nontender. SKIN: Clear, warm and intact. NEURO?PSYCH: The patient is alert and oriented to person, place and time. Sensorv /SILT Motor StrengthShoulder abduction C5 5/5Wrist extension C6 5/5Elbow extension C7 5/5Hand Farm Equipment Maintenance Supervisor C8 5/5Finger abduction T15/5 Radial/ Ulnar/ Median n intact LowerSensory (SILT)Motor StrengthHin flexion L2/3Ant/inner thigh 5/5Hip adduction L2/3 5/5Knee extension L4 Lat thigh, 5/5Toe dorsiflexion L5 5/5Ankle dorsiflexion L5/ B00Ncbqgxa flexion S1 5/5 DTRBleeps 2+Triceps 2+Brachioradialis 2+Patellar 2+Achilles 2+ MUSCULOSKELETAL: [] UPPEREXTREMITIES: The patient had full active ROM in fingers, wrist, elbow, and shoulder. The patient demonstrated ability to fully flex/extend/abduct/adduct fingers, make ok sign, cross 2nd/3rd digits, extend 1st digit fully.. Radial pulse 2+, CR<2 seconds. LOWER EXTREMITIES: Pt has full, active ROM of toes, ankle, knee, and hip. Dorsalis pedis/posterior tibialis pulses 2+, CR<2 seconds. SPINE: Skin warm, dry, intact. Data : 04/06/22 13:30 A&P Assessment and plan (1) Cervical spondylosis with radiculopathy: C5/6, C6/7 ACDF Status: Acute Attestations Medical Necessity Statement*: failed conservative tx Coding Level of Care Code Acute Associate Sales Manager for [facility] Diagnoses Cervical spondylosis with radiculopathy M47.22
[2022-04-11] MEDS: clindamycin 900 MG/50 ML PREMIX 100 MG IV (07:00)
--- NOTE | 2022-04-11 09:28 | P.PCN_ITS ---
PACU note Narrative: VSS, Good respiratory effort, report to HOUSEHOLD APPLIANCE ASSEMBLER Exam: awake
--- NOTE | 2022-04-11 09:28 | PM.PACU ---
PACU note Narrative: VSS, Good respiratory effort, report to EDITORIAL CARTOONIST Exam: awake
--- NOTE | 2022-04-11 09:30 | P.OP_ITS ---
Operative Report Date of procedure: April 11, 2022 Pre-op diagnosis: Preop Diagnosis Cervical Spondylosis w radiculopathy Post-op diagnosis: same Procedure done: 1. Anterior diskectomy C5/6 2. Anterior discectomy C6/7 3. Insertion of cage C5/6 4. Insertion of Cage C6/7 5. Instrumentation with anterior plate from C5-C7 6. Use of allograft Surgeon: Mark Olmedo Estimated blood loss (mL): 5 Procedure: 1. Anterior diskectomy C5/6 2. Anterior discectomy C6/7 3. Insertion of cage C5/6 4. Insertion of Cage C6/7 5. Instrumentation with anterior plate from C5-C7 6. Use of allograft The patient was taken to the operating room, where he underwent general endotracheal anesthesia without complications. He was then positioned supine on the operating table, and all areas of impingement were well padded. The arms were carefully padded and tucked at his sides. A roll was placed between the shoulder blades.. An x-ray was done to determine the appropriate level for the skin incision. The entire neck was then sterilely prepped and draped in the usual fashion. Neuromonitoring was attached prior to prepping. A transverse skin incision was made and carried down to the platysma muscle. This was then split in line with its fibers. Blunt dissection was carried down medial to the carotid sheath and lateral to the trachea and esophagus until the anterior cervical spine was visualized. A needle was placed into a disc and an x-ray was done to determine its location. The longus colli muscles were then elevated bilaterally with the electrocautery unit. Self-retaining retractors were placed deep to the longus colli muscle. Attention was brought to the C5/6 level that was confirmed on x-ray. A caspar pin was placed into the C5 vertebrae and the C6 vertebrae. The disk space was then distracted. The microscope was then brought in. A radical anterior discectomies were performed at C5/6. This included complete removal of the anterior annulus, nucleus, and posterior annulus. The posterior longitudinal ligament was removed as were the posterior osteophytes. Foraminotomies were then accomplished bilaterally. This was done using a high speed manuel, kerrison rongeurs and curretes Once all of this was accomplished, the curved currette was used to check for any residual compression. The central canal was wide open as were the foramen. A high-speed bur was used to remove the cartilaginous endplates above and below the interspace. Bleeding cancellous bone was exposed. The disc space were measured and appropriate size cage were placed sterilely onto the field. Allograft graft was packed into the cages. The cage was then placed and there was good juxtaposition against the bleeding decorticated surfaces and good distraction of each interspace. Attention was brought to the next interspace. The Lee pins were removed. Bone wax was used to prevent any bleeding from occurring at the pin sites. Attention was brought to the C6/7 level that was confirmed on x-ray. A caspar pin was placed into the C6 vertebrae and the C7 vertebrae. The disk space was then distracted. The microscope was then brought in. A radical anterior discectomies were performed at C6/7. This included complete removal of the anterior annulus, nucleus, and posterior annulus. The posterior longitudinal ligament was removed as were the posterior osteophytes. Foraminotomies were then accomplished bilaterally. This was done using a high speed manuel, kerrison rongeurs and curretes Once all of this was accomplished, the curved currette was used to check for any residual compression. The central canal was wide open as were the foramen. A high-speed bur was used to remove the cartilaginous endplates above and below the interspace. Bleeding cancellous bone was exposed. The disc space were measured and appropriate size cage were placed sterilely onto the field. Allograft graft was packed into the cages. The cage was then placed and there was good juxtaposition against the bleeding decorticated surfaces and good distraction of each interspace. Attention was brought to the next interspace. The Lee pins were removed. Bone wax was used to prevent any bleeding from occurring at the pin sites. The appropriate size anterior cervical locking plate was chosen and bent into gentle lordosis. Two screws were then placed into each of the vertebral bodies at C5, C6 and C7. There was excellent purchase. A final x-ray was done confirming good position of the hardware and Cages. The locking screws were then applied, also with excellent purchase. Following a final copious irrigation, there was good hemostasis and no dural adriana ks. The carotid pulse was strong. The wounds were then closed in layers using 2- 0 Vicryl suture for the platysma muscle, 2-0 Vicryl suture for the subcutaneous tissue, and 4-0 monocryl suture in a subcuticular skin closure. Glue was placed followed by application of a sterile dressing. The drain was hooked to bulb suction. A soft collar was applied. The patient was then carefully returned to the supine position on his hospital bed where he was reversed and extubated and taken to the recovery room having tolerated the procedure well.
[2022-04-11] MEDS: HYDROmorphone 1 mg/mL INJ 1 mL 0.5 MG IVP ×2 (09:40→09:55)
--- NOTE | 2022-04-11 09:47 | SUR.PHASEI ---
0919 PT TO PACU 5 PT SLEEPY WITH GOOD RESP EFFORT PT AWAKES TO VOICE, CRYING, TRYING TO SIT UP , HOLDING HEAD UP PULLING AT SIDE RAILS, PT HOB TO 40 DEGREES FOR COMFORT, PILLOW TO BADK OF HEAD AND C COLLAR AREA, IV TO RT HAND #20 WITH NS 800ML UP AT MOD RATE PER GRAVITY, SEE PAIN MED GIVEN BY RAILROAD POLICE OFFICER EARLIER, ORDERS RECIEVED BY Spenser CALDWELL CRNA TO CONTINUE WITH DILAUDID FIRST FOR PAIN IN PACU, PT MOVES BILAT FEET, TO COMMAND, AND HANDS , DOES NOT CANTEEN MANAGER YET TO COMMAND. NECK BRACE IN PLACE AND DRESSING TO ANTERIOR NEDK D/I 0940 PT AWAKES AGAIN, CRYING RESTLESS MOVES ALL EXT TO COMMAND, PT NODS HEAD YES TO PAIN QUESTIONS, SEE PAIN MED GIVEN PT ON 3LNC FOR COMFORT, PT BOTTOM FINISHER EQUAL AND STRONG, PT STILL CONFUSED TO ALL BUT SELF.
--- NOTE | 2022-04-11 09:52 | SUR.PHASEI ---
0919 PT ID BRACELET TO LT WRIST, PT ID'D WITH 2 IDENTIFIERS.
[2022-04-11] MEDS: labetalol 5 mg/mL SDV 20mL IVP (10:06)
--- NOTE | 2022-04-11 10:10 | SUR.PHASEI ---
1006 PT APPEARS MORE RELAXED, BP IN MULTIPLE SITES, PT BP REMAINS ELEVATED AFTER PAIN MEDS, SEE BP MED GIVEN ORDERED HR 78 MONITOR SR WITH NO ECTOPY NOTED.
[2022-04-11] MEDS: HYDROcodone-acetaminophen 10-325 mg Tablet 2 TAB PO (12:02)
--- NOTE | 2022-04-11 13:47 | ANE.PACU2 ---
Inpatient post-anesthesia follow up: Airway intact: Yes Vital signs: Temperature 98.7 F Pulse Rate 77 Respiratory Rate 17 Blood Pressure 171/94 Pulse Oximetry 95 Oxygen Delivery Me thod Room Air Oxygen Flow Rate 2 Fraction of Inspir ed Oxygen Hydration adequate: Yes Nausea and vomiting: No Pain level: 5 Mental status: Baseline
== END 2022-04-11 12:08 | disposition home or self-care (01) ==
PROVIDERS: Anesthesiology; PCP Family Medicine; Visit Provider Orthopaedic Surgery
PROC: 0RB30ZZ Excision of Cervical Vertebral Disc, Open Approach (ICD-10-PCS; CPT 22551; principal; 2022-04-11 07:00)
DX: M47.22 Other spondylosis with radiculopathy, cervical region (principal); E66.01 Morbid (severe) obesity due to excess calories; Z68.39 Body mass index [BMI] 39.0-39.9, adult; I10 Essential (primary) hypertension; Z86.16 Personal history of COVID-19; Z87.891 Personal history of nicotine dependence; Z86.711 Personal history of pulmonary embolism
CPT/HCPCS: 20930; 22551; 22552; 22845; 22853 ×2; 36416; 72040; 76000; 80048; 81025; 82962; C1713; C9359; J0330; J1170; J2250; J2405; J2704; J3010; J3490; J7030

== ENCOUNTER 2022-05-22 07:51 | Outpatient (CLI) | payer BC, SELFPAY ==
--- NOTE | 2022-05-22 08:00 | MR_ITS ---
WS: [id number] MRI LUMBAR SPINE NONCONTRAST TECHNIQUE: Sagittal T1, T2 and STIR imaging. Axial T1 and T2 imaging. CLINICAL INFORMATION: back pain COMPARISON: None. FINDINGS: Prior postoperative changes C5-C7 on the cervical application development team lead imaging. Mild lumbar curve. No acute compress ion. No high-grade central canal stenosis. L1-L2: No significant disc bulging. Mild facet arthropathy. Spinal canal and foramen are patent. L2-L3: Mild annular bulging. Mild facet arthropathy. Spinal canal and foramen are patent. L3-L4: Mild annular bulging. Slight impingement on traversing L4 nerve roots in the subarticular rece ss. Mild facet arthropathy. Spinal canal and foramen are patent. L4-L5: Mild annular bulging. Slight impingement traversing RIGHT L5 nerve root in the subarticular re cess. Mild facet arthropathy. Tiny LEFT foraminal protrusion L4-L5 with a small annular fissure is sl ightly improved compared to previous. L5-S1: No significant disc bulging. Spinal canal and foramen are patent. Moderate facet arthropathy. Visualized pelvic bony structures: Normal. Paravertebral soft tissues: Normal. Shallow disc protrusions in the lower thoracic spine at T7-T8 and T8-T9. MR/MR lumbar spine wo con* [id number] IMPRESSION: 1. Mild lumbar curve. No acute compression. No high-grade central canal stenos is. 2. Mild annular bulging L4-L5 with slight impingement traversing RIGHT L5 nerv e root in the subarticular recess. 3. Tiny LEFT foraminal protrusion L4-L5 with a small annular fissure is slight ly improved compared to previous 4. Mild narrowing of the subarticular recess bilaterally L3-L4 with mild annul ar bulging. 5. Moderate facet arthropathy L3-L5. 6. Prior postoperative changes ACDF C5-C7 on the application development team lead imaging.
== END 2022-05-22 07:52 | disposition home or self-care (01) ==
PROVIDERS: PCP Family Medicine; Visit Provider Orthopaedic Surgery
DX: M51.36 Other intervertebral disc degeneration, lumbar region (principal); M51.26 Other intervertebral disc displacement, lumbar region; M47.816 Spondylosis without myelopathy or radiculopathy, lumbar region
CPT/HCPCS: 72148

== ENCOUNTER → 2022-06-05 12:53 | Outpatient (BNVA) | payer BC, SELFPAY | PROVIDERS: PCP Family Medicine; Visit Provider Physician Assistant | DX: M47.22 Other spondylosis with radiculopathy, cervical region (principal); Z48.89 Encounter for other specified surgical aftercare | CPT/HCPCS: 72040 ==

== ENCOUNTER 2022-06-07 06:00 | Outpatient (RCR) | payer BC, SELFPAY | END 2022-06-24 23:59 | disposition home or self-care (01) | LOC: SPT 06:00 | PROVIDERS: PCP Family Medicine; Referring Provider Anesthesiology Pain Medicine; Visit Provider Anesthesiology Pain Medicine | DX: G89.29 Other chronic pain (principal); M54.50 Low back pain, unspecified | CPT/HCPCS: 97110; 97161; 97530 ==

== ENCOUNTER 2022-06-25 06:00 | Outpatient (RCR) | payer BC, SELFPAY | END 2022-07-25 23:59 | disposition home or self-care (01) | LOC: SPT 06:00 | PROVIDERS: PCP Family Medicine; Visit Provider Anesthesiology Pain Medicine | DX: M54.50 Low back pain, unspecified (principal); G89.29 Other chronic pain | CPT/HCPCS: 20560; 97110 ==

== ENCOUNTER → 2022-06-28 14:13 | Outpatient (BNVA) | payer BC, SELFPAY | PROVIDERS: PCP Family Medicine; Visit Provider Physician Assistant | DX: M47.22 Other spondylosis with radiculopathy, cervical region (principal); Z48.89 Encounter for other specified surgical aftercare | CPT/HCPCS: 72040 ==

== ENCOUNTER → 2022-07-24 10:27 | Outpatient (BNVA) | payer BC, SELFPAY | PROVIDERS: PCP Family Medicine; Visit Provider Anesthesiology Pain Medicine | DX: M17.11 Unilateral primary osteoarthritis, right knee (principal) | CPT/HCPCS: 73560 ==

== ENCOUNTER 2022-07-26 06:00 | Outpatient (RCR) | payer BC, SELFPAY | END 2022-08-24 23:59 | disposition home or self-care (01) | LOC: SPT 06:00 | PROVIDERS: PCP Family Medicine; Visit Provider Anesthesiology Pain Medicine | DX: M54.50 Low back pain, unspecified (principal); G89.29 Other chronic pain | CPT/HCPCS: 97110 ==

== ENCOUNTER → 2022-08-09 14:32 | Outpatient (BNVA) | payer BC, SELFPAY | PROVIDERS: PCP Family Medicine; Visit Provider Physician Assistant | DX: M25.562 Pain in left knee (principal) | CPT/HCPCS: 73560; 73565 ==

== ENCOUNTER → 2022-08-16 15:21 | Outpatient (BNVA) | payer BC, SELFPAY | PROVIDERS: PCP Family Medicine; Visit Provider Family Medicine | DX: M51.37 Other intervertebral disc degeneration, lumbosacral region (principal); M19.90 Unspecified osteoarthritis, unspecified site; M79.10 Myalgia, unspecified site; G89.29 Other chronic pain; I10 Essential (primary) hypertension | CPT/HCPCS: 80053; 85025; 85651; 86140 ==

== ENCOUNTER → 2022-08-21 12:44 | Outpatient (BNVA) | payer BC, SELFPAY | PROVIDERS: PCP Family Medicine; Visit Provider Anesthesiology Pain Medicine | DX: M16.2 Bilateral osteoarthritis resulting from hip dysplasia (principal); M47.22 Other spondylosis with radiculopathy, cervical region; M51.37 Other intervertebral disc degeneration, lumbosacral region | CPT/HCPCS: 20610; 77002; 86160; 86162; 86235; 86255; 86376 ==

== ENCOUNTER 2022-08-25 06:00 | Outpatient (RCR) | payer BC, SELFPAY | END 2022-09-24 23:59 | disposition home or self-care (01) | LOC: SPT 06:00 | PROVIDERS: PCP Family Medicine; Visit Provider Anesthesiology Pain Medicine | DX: M54.50 Low back pain, unspecified (principal); G89.29 Other chronic pain | CPT/HCPCS: 97110 ==

== ENCOUNTER 2022-09-06 07:15 | Outpatient (CLI) | payer BC, SELFPAY ==
--- NOTE | 2022-09-06 07:15 | MR_ITS ---
WS: [id number] MRI RIGHT KNEE NONCONTRAST TECHNIQUE: Axial PD, coronal PD fat sat, coronal PD, sagittal PD, and sagittal PD fat-sat images obta ined. CLINICAL INFORMATION: knee pain COMPARISON: None. FINDINGS: Distal quadriceps and patella tendons are intact. Hypertrophic patella. Prepatellar and infrapatellar soft tissue edema. Mild chronic thinning of the ACL which is grossly intact. Normal PCL. Mild chroni c thinning of the medial and lateral meniscus. No acute appearing meniscal tears. Moderate chondromal acia medial and lateral joint compartments. No subchondral edema. Advanced chondromalacia patella with complete loss of cartilage along the medial patella facet. Mode rate suprapatellar effusion. Medial and lateral collateral ligaments are intact. Normal medial and la teral patellar retinaculum. Normal popliteal fossa. MR/MR knee RT wo con* [id number] IMPRESSION: 1. 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 2. Chronic thinning of the medial and lateral meniscus. No acute appearing men iscal tears. 3. Advanced chondromalacia patella with complete loss of the patella cartilage along the medial patella facet. 4. Moderate suprapatellar effusion. 5. Subcutaneous edema involving the prepatellar and infrapatellar soft tissues . 6. Mild chronic thinning of the ACL at the tibial insertion which appears gary sly intact. Normal PCL. 7. No other acute findings. Outbridge grading: grade IV: full-thickness cartilage loss with underlying bone reactive changes
== END 2022-09-06 07:16 | disposition home or self-care (01) ==
LOC: RAD 07:16
PROVIDERS: PCP Family Medicine; Visit Provider Physician Assistant
DX: M23.91 Unspecified internal derangement of right knee (principal); M25.561 Pain in right knee; M13.861 Other specified arthritis, right knee; M94.261 Chondromalacia, right knee; M25.461 Effusion, right knee
CPT/HCPCS: 73721

== ENCOUNTER → 2022-10-04 11:06 | Outpatient (BNVA) | payer BC, SELFPAY | PROVIDERS: PCP Family Medicine; Visit Provider Physician Assistant | DX: Z98.1 Arthrodesis status (principal); Z47.89 Encounter for other orthopedic aftercare | CPT/HCPCS: 72040 ==

== ENCOUNTER 2022-11-07 09:13 | Day surgery (SDC) | payer BC, SELFPAY ==
[2022-11-06 14:12] VITALS: BMI 42.3
[2022-11-07] VITALS (11 sets, daily range): BP systolic 147–173; BP diastolic 75–104; PULSE 74–83; RESP 12–20; TEMP 36.4–37.1; O2SAT 97–100
[2022-11-07] MEDS: sodium chloride 0.9% 1,000 ML 30 ML IV (09:56)
[2022-11-07 10:12] LABS: OR HCG Qualitative Urine Negative (Negative)
--- NOTE | 2022-11-07 10:12 | ANES.PREANE2 ---
Pre-Anesthetic Assessment Height/Weight: Height 1.7 m Weight 122.47 kg Temp Pulse Resp BP Pulse Ox O2 Del Method 98.8 F 78 16 162/101 98 Nasal Cannula 11/07/22 09:36 11/07/22 09:36 11/07/22 09:36 11/07/22 09:36 11/07/22 09:36 11/07/22 09:36 Preop Diagnosis: Right knee chondromalacia Operation Date: 11/07/22 10:45 Proposed Procedures p diagnostic right knee arthroscopy/ 73908, M94.261(Right) - Demian Julianne, DO Familial anesthetic complications: None Was Beta Rashi taken within 24 hours: N/A Was Clonidine taken within 24 hours: N/A Last intake: Intake Last Liquid Date 11/06/22 Last Liquid Time 21:00 Last Solid Date 11/06/22 Last Solid Time 21:00 Social No alcohol and No tobacco Exam alert, oriented x 3, clear to auscultation bilaterally and regular rate & rhythm Airway Mallampati: Class II Dentition: full CV/HEM Hypertension Musc/skel Lower Back Pain Anesthetic Plan ASA status: 2 Anesthesia: MAC and Regional (specify below) Risk of > 500 ml blood loss (7ml/kg in children): No Medications/Allergies Home Medications Medication Instructions Recorded Confirmed Last Taken Type vitamin B complex (B 1 tab PO DAILY 06/08/21 11/06/22 Unknown History Complex-Vitamin B12 tablet) Bone Growth Stimulator E0748 #1 ea 03/19/22 10/25/22 Unknown Rx duloxetine 20 mg capsule,delayed 20 mg PO DAILY 04/09/22 11/07/22 11/06/22 History release cpap #1 ea 06/12/22 10/25/22 Unknown Rx auto cpap See Rx Instructions .Route 06/24/22 11/06/22 Unknown Rx .COMPLEX #1 device amlodipine 5 mg tablet 5 mg PO DAILY #30 tabs 09/10/22 11/07/22 11/06/22 Rx celecoxib 200 mg capsule (Celebrex) 200 mg PO DAILY #90 caps 09/10/22 11/07/22 11/06/22 Rx losartan 100 mg tablet 100 mg PO DAILY #90 tabs 09/10/22 11/07/22 11/05/22 Rx norethindrone (contraceptive) 0.35 0.35 mg PO DAILY #84 tabs 09/10/22 11/07/22 11/06/22 Rx mg tablet (Sharobel) trazodone 50 mg tablet 50 mg PO BEDTIME #30 tabs 09/10/22 11/07/22 11/06/22 Rx gabapentin 300 mg capsule 300 mg PO BID pain 30 days #60 10/09/22 11/07/22 11/06/22 Rx caps hydrocodone 7.5 mg-acetaminophen 1 tab PO TID PRN pain 30 days #90 10/09/22 11/07/22 11/06/22 Rx 325 mg tablet tabs methocarbamol 750 mg tablet 750 mg PO BID spasm #60 tabs 10/09/22 11/07/22 11/06/22 Rx Allergies Allergy/AdvReac Type Severity Reaction Status Date / Time Dihydroaminopryidine Allergy Mild rash Verified 10/25/22 07:10 Antibiotics acetaminophen [From Midol] Allergy Unknown unknown Verified 10/25/22 07:10 azithromycin [From Zithromax] Allergy Unknown Unknown Verified 10/25/22 07:10 cephalexin [From Keflex] Allergy Unknown Unknown Verified 10/25/22 07:10 doxycycline Allergy Unknown Unknown Verified 10/25/22 07:10 nitrofurantoin Allergy Unknown Unknown Verified 10/25/22 07:10 [From Macrobid] pamabrom [From Midol] Allergy Unknown unknown Verified 10/25/22 07:10 Penicillins Allergy Unknown Unknown Verified 10/25/22 07:10 Sulfa (Sulfonamide Allergy Unknown Unknown Verified 10/25/22 07:10 Antibiotics) naproxen [From Aleve] Allergy Unknown Verified 10/25/22 07:10 Current Medications Generic Name Dose Route Start Last Admin Trade Name Freq PRN Reason Stop Dose Admin Sodium Chloride 1,000 mls @ 30 mls/hr 11/07/22 09:15 11/07/22 09:56 Sodium Chloride 0.9% IV 11/08/22 09:14 30 mls/hr .Q24H PAULA Administration PFSH Anesthesia Medical History Chondromalacia, right knee History of COVID-19 Hypertension Hypoxia Pain of left sacroiliac joint Pleuritic chest pain Pneumonia Pulmonary embolism Recurrent UTI Slipped cervical disc Yeast vaginitis Surgical History History of section History of knee surgery Family History Mother Cancer breast Other Diabetes Social History Smoking and tobacco status: never smoked Second hand smoke exposure: No Alcohol intake: never Household members: children Marital status: Current occupational status: employed Current occupation: [employer]- [employer] History of recent travel: No Data Anesthesia Cardiac Studies: Echocardiogram 10/16/21
--- NOTE | 2022-11-07 10:26 | W.PM.OPSUD ---
Surgery/Procedure H&P Update DATE OF PROCEDURE: November 07, 2022 DATE H&P PERFORMED: 10/25/22 CHANGES TO PREVIOUS DOCUMENTATION: None PREOP DIAGNOSIS: Right knee chondromalacia PRIMARY INDICATION FOR PROCEDURE: Right knee chondromalacia failed conservative treatment PLANNED PROCEDURE: Operation Date: 11/07/22 10:45 Proposed Procedures p diagnostic right knee arthroscopy/ [id number], M94.261(Right) - Demian Whitaker DO
--- NOTE | 2022-11-07 10:30 | ANES.PROC ---
Anesthesia Procedures Procedure/Date: 11/07/22 Nerve Block ^: Nerve Block 1: Main Anesthesia: general anesthesia Consent: requested by attending/covering physician, from patient, from other, risks and benefits reviewed and patient agrees to proceed Nerve block location: adductor canal (R) Anesthesia monitors applied: pulse oximetry, EKG, BP cuff and oxygen Nerve block position: supine Anesthetic Used: ropivicaine 0.5% (30) and with decadron ( mg) Ultrasound used to: recognize landmarks and visualize and ID femerol nerve Nerve Stimulator Used?: No Interscalene/Femoral BLK: 4 stimuplex 21 g needle used for position and inplane approach, visualize local anesthetic spread and no vascular puncture identified Injection: neg aspiration of heme and paresthesia +/- Patient Tolerated Procedure: well and no complications Complications: none
[2022-11-07] MEDS: clindamycin 600 MG/50 ML PREMIX 100 MG IV (11:52)
--- NOTE | 2022-11-07 12:40 | PM.OP2 ---
Brief Operative Note Date of procedure: 11/07/22 Pre-op diagnosis: Right knee chondromalacia Post-op diagnosis: same (Right knee medial patellofemoral chondromalacia and extensive synovitis) Procedure Done: Right knee diagnostic and surgical arthroscopy with extensive synovectomy of medial lateral patellofemoral compartments Right knee diagnostic and surgical arthroscopy with medial and patellofemoral chondroplasty Surgeon: Demian Whitaker Estimated blood loss (mL): 5 Complications: None Post-op Plan: Patient taken to PACU in stable condition. Patient recovering well. Patient received appropriate discharge instructions as well as pain medication DVT prophylaxis. Patient will follow-up with me in the office in 2 weeks. Condition: stable Disposition: same day Coding Level of Care Code Acute Marketing Administrator for [employer] [facility]ujo
--- NOTE | 2022-11-07 12:42 | PM.PACU ---
PACU note Narrative: Patient taken to PACU in stable condition. Patient recovering well. Dressing clean dry intact. Patient received regional anesthesia. Distal pulse palpable toes warm well perfused. Exam: awake Disposition: discharged
--- NOTE | 2022-11-07 12:43 | P.OP_ITS ---
Operative Report Date of procedure: November 07, 2022 Pre-op diagnosis: Preop Diagnosis Right knee chondromalacia Post-op diagnosis: Right knee medial and patellofemoral chondromalacia Right knee extensive synovitis Procedure done: Right knee diagnostic and surgical arthroscopy with extensive synovectomy of medial,lateral , and patellofemoral compartments Right knee diagnostic and surgical arthroscopy with medial and patellofemoral chondroplasty Surgeon: Demian Whitaker DO Estimated blood loss (mL): 5 15 minutes IV fluids: See anesthesia record Complications: None Findings: See operative report narrative Condition: stable Disposition: same day Brief History: Patient was seen evaluate in the outpatient setting work-up confirms preoperative diagnosis. Patient was found on MRI to have chondromalacia no significant meniscal tear underwent injection in the office which gave her good relief for only a temporary period of time. She was seen and evaluated and findings consistent with preoperative diagnosis. We talked about treatment options as far as nonoperative and operative intervention she elects to proceed with surgical intervention of right knee diagnostic and surgical arthroscopy. She understands that she does have chondromalacia and no meniscal tear and that this may not completely resolve her symptoms. However understanding this she agrees to proceed with surgical intervention. All questions answered at this time. Consent was reviewed and signed in the office. Procedure: Patient seen evaluated in the preoperative holding area. Consent was reviewed and signed with patient. Correct extremity was marked. Patient was seen evaluated by C department was cleared for surgery she underwent regional anesthesia with plan for MAC static. She was brought back to the operative suite placed in supine position all bony prominences well-padded patient p roperly secured to bed. Nonsterile tourniquet applied to the right thigh. Patient underwent anesthesia per the anesthesia department. The right lower extremities then prepped and draped in therapeutic fashion. Final timeout performed. Patient received appropriate preoperative antibiotics Patient received local anesthetic at the portal sites and within the knee joint. Esmarch tourniquet was used exsanguinate the right lower extremity tourniquet was insufflated to 250 mmHg. A standard 2 vertical arthroscopic portal arthroscopy was performed. Starting with inferior lateral portal made with 11 blade. Introduced the arthroscope and visualize the suprapatellar pouch which was cleaned of any loose bodies. I then visualized the medial gutter which showed no loose bodies. I then introduced the arthroscope and the medial compartment. Spinal needle was used to establish the medial working portal utilizing outside in technique. I then made a small incision with 11 blade utilizing blunt the arthroscopic shaver performed a synovectomy of the medial compartment. I then performed a valgus of the knee and visualized the medial compartment. The medial compartment was found to have grade II and III chondromalacia the arthroscopic shaver was introduced and performed a chondroplasty of the entire medial compartment of both tibial plateau and medial femoral condyle. Introduced arthroscopic probe and the meniscus was probed and found to be intact at the root as well as throughout the meniscus to its entirety. This completed work in the medial compartment then visualized the intercondylar notch which had significance synovitis performed a synovectomy of this area and visualize a ACL and PCL which were intact. Lateral compartment was then inspected and found to have grade I chondromalacia with no evidence of meniscal tear which was extensively evaluated with arthroscopic probe was including the root which was intact. Next visualized the lateral gutter which was free of any loose bodies. I then introduced the arthroscope into the patellofemoral compartment. Patellofemoral compartment had significant synovitis and interposing synovium. Extensive synovectomy was then performed the patellofemoral compartment completing my extensive synovectomy of both the medial lateral and patellofemoral compartment. I then introduced the arthroscopic shaver and perform a chondroplasty of the patellofemoral compartment to stable articular margins. The edges were needled with thermal wand. At this point time tourniquet was deflated. All fluid was removed from the joint. Instruments were withdrawn. Arthroscopic portal sites were then closed with interrupted nylon suture. Incisions were then covered with Xeroform 4 x 4's ABD Curlex soft roll and an Darion wrap. Patient was then awakened from anesthesia and taken to PACU in stable condition Disposition: Patient taken back in stable condition patient receive appropriate discharge instruction as well as pain medication and DVT prophylaxis postoperatively. Patient will be weight-bear as tolerated to the right lower extremity. She will follow-up with me in the office in 2 weeks. Patient understands agrees with current plan. All questions answered.
--- NOTE | 2022-11-07 16:37 | ANE.PACU2 ---
Inpatient post-anesthesia follow up: Airway intact: Yes Vital signs: Temperature 97.6 F Pulse Rate 83 Respiratory Rate 20 Blood Pressure 170/100 Pulse Oximetry 98 Oxygen Delivery Me thod Room Air Oxygen Flow Rate 8 Fraction of Inspir ed Oxygen Hydration adequate: Yes Nausea and vomiting: No Pain level: 1 Mental status: Baseline
== END 2022-11-07 14:15 | disposition home or self-care (01) ==
PROVIDERS: Anesthesiology; PCP Family Medicine; Visit Provider Student in an Organized Health Care Education/Training Program
PROC: (CPT 29870; principal; 2022-11-07 10:35)
DX: M22.41 Chondromalacia patellae, right knee (principal); M65.88 Other synovitis and tenosynovitis, other site; I10 Essential (primary) hypertension; Z86.16 Personal history of COVID-19
CPT/HCPCS: 29876; 81025; 84703; J1100; J2405; J2704; J2795; J3010; J3490; J7030

== ENCOUNTER 2022-11-25 06:00 | Outpatient (RCR) | payer BC, SELFPAY | END 2022-12-25 23:59 | disposition home or self-care (01) | LOC: SPT 06:00 | PROVIDERS: PCP Family Medicine; Visit Provider Student in an Organized Health Care Education/Training Program | DX: M22.41 Chondromalacia patellae, right knee (principal); M17.11 Unilateral primary osteoarthritis, right knee; M25.561 Pain in right knee | CPT/HCPCS: 97032; 97110; 97161 ==

== ENCOUNTER 2022-12-26 06:00 | Outpatient (RCR) | payer BC, SELFPAY | END 2023-01-22 23:59 | disposition home or self-care (01) | LOC: SPT 06:00 | PROVIDERS: PCP Family Medicine; Visit Provider Student in an Organized Health Care Education/Training Program | DX: M22.41 Chondromalacia patellae, right knee (principal); M17.11 Unilateral primary osteoarthritis, right knee | CPT/HCPCS: 97110 ==

== ENCOUNTER → 2023-01-10 14:48 | Outpatient (BNVA) | payer BC, SELFPAY | PROVIDERS: PCP Family Medicine; Visit Provider Anesthesiology Pain Medicine | DX: M16.9 Osteoarthritis of hip, unspecified (principal); M53.3 Sacrococcygeal disorders, not elsewhere classified; M25.559 Pain in unspecified hip | CPT/HCPCS: 77002 ==

== ENCOUNTER 2023-01-23 06:00 | Outpatient (RCR) | payer BC, SELFPAY | END 2023-01-24 23:59 | disposition home or self-care (01) | LOC: SPT 06:00 | PROVIDERS: PCP Family Medicine; Visit Provider Student in an Organized Health Care Education/Training Program | DX: M22.41 Chondromalacia patellae, right knee (principal); M17.11 Unilateral primary osteoarthritis, right knee; M25.561 Pain in right knee | CPT/HCPCS: 97110 ==

== ENCOUNTER 2023-02-05 09:26 | Outpatient (CLI) | payer BC, SELFPAY ==
--- NOTE | 2023-02-05 09:44 | MM_ITS ---
WS: [id number] BILATERAL SCREENING DIGITAL TOMOSYNTHESIS MAMMOGRAM WITH CAD HISTORY: SCREENING COMPARISON: 01/11/2022, 12/13/2021 and 01/07/2019 Bilateral CC and MLO views with tomosynthesis and synthetic mammography submitted. Computer aided det ection analyzed. Breast composition: There are scattered areas of fibroglandular density. No suspicious masses, microc alcifications or architectural distortion. Benign calcification LEFT breast. MM/[place] [id number] IMPRESSION: BI-RADS: 2-Benign FOLLOW UP: 1 Year Follow-up
== END 2023-02-05 09:27 | disposition home or self-care (01) ==
LOC: RAD 09:28
PROVIDERS: PCP Family Medicine; Visit Provider Family Medicine
DX: Z12.31 Encounter for screening mammogram for malignant neoplasm of breast (principal)
CPT/HCPCS: 77063; 77067

== ENCOUNTER → 2023-03-26 08:09 | Outpatient (BNVA) | payer BC, SELFPAY | PROVIDERS: PCP Family Medicine; Visit Provider Physician Assistant | DX: Z98.1 Arthrodesis status (principal) | CPT/HCPCS: 72040 ==

== ENCOUNTER → 2023-04-04 15:31 | Outpatient (BNVA) | payer BC, SELFPAY | PROVIDERS: PCP Family Medicine; Visit Provider Student in an Organized Health Care Education/Training Program | DX: M70.51 Other bursitis of knee, right knee (principal); M94.261 Chondromalacia, right knee | CPT/HCPCS: 73560; 73565 ==

== ENCOUNTER → 2024-01-21 07:59 | Outpatient (BNVA) | payer OTHER, SELFPAY | PROVIDERS: PCP Family Medicine; Visit Provider Physician Assistant | DX: M94.261 Chondromalacia, right knee (principal) | CPT/HCPCS: 73560; 73565 ==

== ENCOUNTER 2024-01-22 07:32 | Outpatient (CLI) | payer OTHER, SELFPAY ==
--- NOTE | 2024-01-22 07:37 | CT_ITS ---
WS: [id number] CT HEAD WITH AND WITHOUT CONTRAST HISTORY: HEADACHE TECHNIQUE: Noncontrast 3.0 mm axial images obtained from the vertex to the skull base. Additional kennedy ging performed at 3.0 mm axial images status post IV contrast. Bone and soft tissue windows are revie wed. All CT scans at [facility] use at least one of these dose optimization techniques: autom ated exposure control; mA and/or kV adjustment per patient size (includes targeted exams where dose i s matched to clinical indication); or iterative reconstruction. CONTRAST: Omnipaque 350; 100 mL IV. DLP: 2122.18 mGy.cm COMPARISON: None available. No acute intracranial hemorrhage, edema or midline shift. Ventricles are normal. No loss of the dean- white matter differentiation. No volume loss or atrophy. No intra displacement of the cerebellar tons ils. No enhancing mass or vascular malformations identified. Dural venous sinuses are normally enhancing. Visualized [place] is unremarkable. Paranasal sinuses as visualized: Clear. Mastoid air cells: Clear. Calvarium and scalp: Intact. IMPRESSION: 1. No acute intracranial hemorrhage or edema. 2. No enhancing mass. 3. No significant atrophy.
[2024-01-22] MEDS: iohexol 350 mg/mL 500 mL Btl (per mL) IV (08:21)
== END 2024-01-22 07:33 | disposition home or self-care (01) ==
LOC: RAD 07:33
PROVIDERS: PCP Family Medicine; Visit Provider Physician Assistant
DX: R51.9 Headache, unspecified (principal)
CPT/HCPCS: 70470; Q9967

== ENCOUNTER → 2024-02-18 14:21 | Outpatient (BNVA) | payer OTHER, SELFPAY | PROVIDERS: PCP Family Medicine; Visit Provider Orthopaedic Surgery | DX: M54.2 Cervicalgia (principal) | CPT/HCPCS: 72040 ==

== ENCOUNTER → 2024-08-21 08:35 | Outpatient (BNVA) | payer MEDICARE, SELFPAY | PROVIDERS: PCP Family Medicine; Visit Provider Physician Assistant | DX: M94.261 Chondromalacia, right knee | CPT/HCPCS: 20610; 99213; J7318 ==

== ENCOUNTER → 2024-12-03 08:01 | Outpatient (BNVA) | payer MEDICARE, SELFPAY | PROVIDERS: PCP Family Medicine; Visit Provider Physician Assistant | DX: M17.12 Unilateral primary osteoarthritis, left knee (principal); M94.261 Chondromalacia, right knee | CPT/HCPCS: 20610; 99213; J3301; J7318 ==

== ENCOUNTER → 2024-12-28 09:40 | Outpatient (BNVA) | payer MEDICARE, SELFPAY | PROVIDERS: PCP Family Medicine; Visit Provider Anesthesiology Pain Medicine | DX: M47.816 Spondylosis without myelopathy or radiculopathy, lumbar region (principal); M54.16 Radiculopathy, lumbar region; M54.50 Low back pain, unspecified; M79.605 Pain in left leg; M54.2 Cervicalgia; M25.559 Pain in unspecified hip; M25.552 Pain in left hip | CPT/HCPCS: 99214 ==

== ENCOUNTER 2025-01-07 08:57 | Outpatient (CLI) | payer MEDICARE, SELFPAY ==
--- NOTE | 2025-01-07 09:30 | MR_ITS ---
WS: [id number] MRI LUMBAR SPINE NONCONTRAST HISTORY: M54.16 - Radiculopathy, lumbar region, LEFT leg radiculopathy. COMPARISON: 05/22/2022 TECHNIQUE: Sagittal and axial multisequence imaging is submitted. Prior anterior cervical fusion from C5-C7. Normal lumbar alignment with no compression fractures or marrow edema. Disc spaces and vertebral body heights are well-preserved. Conus terminates normally at L1. L1-L2: Mild facet arthritis. No stenosis. L2-L3: Mild annular disc bulging with mild ligamentum flavum and facet arthritis. Mild foraminal stenosis. L3-L4: Mild annular disc bulging encroaching upon the subarticular recesses. Very shallow bilateral foraminal disc protrusions. Mild disc encroachment upon the traversing L4 nerve roots. There is very minimal disc contact on the LEFT exiting L3 nerve root which is new. L4-L5: Mild annular disc bulging with very slight disc contact on the traversing RIGHT L5 nerve root in the subarticular recess. There is an additional small disc protrusion with annular fissure in the LEFT foramen. Mild foraminal stenosis. L5-S1: Mild annular disc bulging. Mild facet arthritis. Paravertebral soft tissues are normal. MR/MR lumbar spine wo con* [id number] IMPRESSION: 1. No high-grade central or foraminal stenosis. 2. No acute compression fracture. 3. New, minimal disc contact on the exiting LEFT L3 nerve root. 4. Mild disc contact on the traversing RIGHT L5 nerve root in the subarticular recess, unchanged. 5. Unchanged small disc protrusion with annular fissure in the LEFT foramen at L4-5. 6. Mild bilateral foraminal stenosis at L2-3 and L4-5.
== END 2025-01-07 08:58 | disposition home or self-care (01) ==
LOC: RAD 09:00
PROVIDERS: PCP Family Medicine; Visit Provider Anesthesiology Pain Medicine
DX: M54.16 Radiculopathy, lumbar region (principal); R93.7 Abnormal findings on diagnostic imaging of other parts of musculoskeletal system; M51.26 Other intervertebral disc displacement, lumbar region; M48.061 Spinal stenosis, lumbar region without neurogenic claudication; Z98.1 Arthrodesis status; M47.896 Other spondylosis, lumbar region; M51.369 Other intervertebral disc degeneration, lumbar region without mention of lumbar back pain or lower extremity pain; M51.379 Other intervertebral disc degeneration, lumbosacral region without mention of lumbar back pain or lower extremity pain; M47.897 Other spondylosis, lumbosacral region
CPT/HCPCS: 72148

== ENCOUNTER → 2025-01-19 12:50 | Outpatient (BNVA) | payer MEDICARE, SELFPAY | PROVIDERS: PCP Family Medicine; Visit Provider Anesthesiology Pain Medicine | DX: M79.18 Myalgia, other site (principal); M54.2 Cervicalgia; M54.50 Low back pain, unspecified; M79.605 Pain in left leg; M54.9 Dorsalgia, unspecified; M47.816 Spondylosis without myelopathy or radiculopathy, lumbar region; M25.552 Pain in left hip | CPT/HCPCS: 20553; 99214; J1010; J3490 ==

== ENCOUNTER → 2025-02-24 08:56 | Outpatient (BNVA) | payer MEDICARE, SELFPAY | PROVIDERS: PCP Family Medicine; Visit Provider Physician Assistant | DX: M17.0 Bilateral primary osteoarthritis of knee (principal); M94.261 Chondromalacia, right knee; M23.91 Unspecified internal derangement of right knee | CPT/HCPCS: 20610; 73560; 73565; 99213; J7318 ==

== ENCOUNTER → 2025-03-02 09:30 | Outpatient (BNVA) | payer MEDICARE, SELFPAY | PROVIDERS: PCP Family Medicine; Visit Provider Anesthesiology Pain Medicine | DX: M54.50 Low back pain, unspecified (principal); M79.605 Pain in left leg; M54.2 Cervicalgia; M54.9 Dorsalgia, unspecified; M47.816 Spondylosis without myelopathy or radiculopathy, lumbar region; M25.552 Pain in left hip; M25.551 Pain in right hip | CPT/HCPCS: 99214 ==

== ENCOUNTER → 2025-04-06 09:24 | Outpatient (BNVA) | payer MEDICARE, SELFPAY | PROVIDERS: PCP Family Medicine; Visit Provider Student in an Organized Health Care Education/Training Program | DX: M25.552 Pain in left hip (principal); M70.62 Trochanteric bursitis, left hip; M51.369 Other intervertebral disc degeneration, lumbar region without mention of lumbar back pain or lower extremity pain | CPT/HCPCS: 20610; 73502; 99214; J3301; J3490; J9999 ==

== ENCOUNTER 2025-04-22 11:29 | Outpatient (RCR) | payer MEDICARE, SELFPAY | END 2025-04-24 23:55 | disposition home or self-care (01) | LOC: SPT 11:29 | PROVIDERS: Visit Provider Student in an Organized Health Care Education/Training Program | DX: M70.62 Trochanteric bursitis, left hip (principal) | CPT/HCPCS: 97162 ==

== ENCOUNTER 2025-04-25 05:00 | Outpatient (RCR) | payer MEDICARE, SELFPAY | END 2025-05-24 23:59 | disposition home or self-care (01) | LOC: SPT 05:00 | PROVIDERS: Visit Provider Student in an Organized Health Care Education/Training Program | DX: M70.62 Trochanteric bursitis, left hip (principal) | CPT/HCPCS: 97110 ==

== ENCOUNTER 2025-05-25 05:00 | Outpatient (RCR) | payer MEDICARE, SELFPAY | END 2025-06-24 23:59 | disposition home or self-care (01) | LOC: SPT 05:00 | PROVIDERS: PCP Family Medicine; Visit Provider Student in an Organized Health Care Education/Training Program | DX: M70.62 Trochanteric bursitis, left hip (principal) | CPT/HCPCS: 97110 ==

== ENCOUNTER → 2025-06-01 09:25 | Outpatient (BNVA) | payer MEDICARE, SELFPAY | PROVIDERS: PCP Family Medicine; Visit Provider Physician Assistant | DX: M94.261 Chondromalacia, right knee (principal); M17.12 Unilateral primary osteoarthritis, left knee | CPT/HCPCS: 20610; 99213; J3301; J9999 ==

== ENCOUNTER 2025-06-25 06:30 | Outpatient (RCR) | payer MEDICARE, SELFPAY | END 2025-07-06 09:15 | disposition home or self-care (01) | LOC: SPT 06:30 | PROVIDERS: PCP Family Medicine; Visit Provider Student in an Organized Health Care Education/Training Program | DX: M70.62 Trochanteric bursitis, left hip (principal) | CPT/HCPCS: 97110 ==

== ENCOUNTER → 2025-07-28 07:56 | Outpatient (BNVA) | payer MEDICARE, SELFPAY | PROVIDERS: PCP Family Medicine; Visit Provider Student in an Organized Health Care Education/Training Program | DX: M70.62 Trochanteric bursitis, left hip (principal); M51.369 Other intervertebral disc degeneration, lumbar region without mention of lumbar back pain or lower extremity pain | CPT/HCPCS: 20610; 99213; J3301; J3490; J9999 ==

== ENCOUNTER → 2025-08-31 10:34 | Outpatient (BNVA) | payer MEDICARE, SELFPAY | PROVIDERS: PCP Family Medicine; Visit Provider Student in an Organized Health Care Education/Training Program | DX: M94.261 Chondromalacia, right knee (principal); M23.91 Unspecified internal derangement of right knee | CPT/HCPCS: 20610; 99213; J7318 ==

== ENCOUNTER 2025-10-04 12:08 | Outpatient (CLI) | payer MEDICARE, SELFPAY ==
--- NOTE | 2025-10-04 12:20 | CT_ITS ---
WS: [id number] CT ABDOMEN AND PELVIS NONCONTRAST HISTORY: RENAL STONES TECHNIQUE: Imaging performed through the abdomen and pelvis. Coronal and sagittal reformats are submitted. All CT scans at [facility] use at least one of these dose optimization techniques: automated exposure control; mA and/or kV adjustment per patient size (includes targeted exams where dose is matched to clinical indication); or iterative reconstruction. DLP: 1040.38 mGy.cm COMPARISON: 10/08/2019 Lower thorax: Lung bases are clear. Visualized heart is normal. No hiatal hernia. Liver: Normal liver. Stable 6 mm hypodensity RIGHT lobe of the liver. Gallbladder: Normal gallbladder. No pericholecystic fluid or cholelithiasis. No gallbladder wall thickening. Pancreas: Normal size and attenuation. Normal pancreatic duct. No pancreatitis or mass. Spleen: Normal. Adrenal glands: Normal. No mass. Right kidney: Normal size kidney. Nonobstructing calcification lower pole. Left kidney: Normal size kidney with no mass or hydronephrosis. Aorta: Normal abdominal aorta, no aneurysm or atherosclerosis. No free fluid, intraperitoneal air or significant lymphadenopathy. GI tract: No obstruction. Normal appendix. Mild diverticular disease without acute diverticulitis. Abdominal wall: Small umbilical hernia contains fat only. Pelvis: Osseous structures: Degenerative joint space narrowing involving the hips. CT/CT kidney stone [id number] IMPRESSION: 1. No renal obstruction or perinephric stranding. 2. No GI tract obstruction. 3. Mild diverticular disease without acute diverticulitis. 4. No ascites. 5. No inguinal hernia.
== END 2025-10-04 12:09 | disposition home or self-care (01) ==
LOC: RAD 12:12
PROVIDERS: PCP Family Medicine; Visit Provider Family Medicine
DX: N20.0 Calculus of kidney (principal); K57.90 Diverticulosis of intestine, part unspecified, without perforation or abscess without bleeding; K46.9 Unspecified abdominal hernia without obstruction or gangrene
CPT/HCPCS: 74176

== ENCOUNTER → 2025-11-02 08:27 | Outpatient (BNVA) | payer MEDICARE, SELFPAY | PROVIDERS: PCP Family Medicine; Visit Provider Student in an Organized Health Care Education/Training Program | DX: M70.62 Trochanteric bursitis, left hip (principal) | CPT/HCPCS: 20610; 99213; J3301; J3490; J9999 ==

== ENCOUNTER → 2025-11-09 08:14 | Outpatient (BNVA) | payer MEDICARE, SELFPAY | PROVIDERS: PCP Family Medicine; Visit Provider Anesthesiology Pain Medicine | DX: M47.816 Spondylosis without myelopathy or radiculopathy, lumbar region (principal); M51.369 Other intervertebral disc degeneration, lumbar region without mention of lumbar back pain or lower extremity pain; M51.379 Other intervertebral disc degeneration, lumbosacral region without mention of lumbar back pain or lower extremity pain; M79.605 Pain in left leg; M25.552 Pain in left hip; M54.2 Cervicalgia | CPT/HCPCS: 99214 ==